=== PATIENT | female | born 1960 | race Caucasian/White ===

== ENCOUNTER 2019-08-29 12:26 | Emergency (ER) | payer BC, OTHER ==
[2019-08-29] MEDS ORDERED: FENTANYL CITR 100 MCG/2 ML ONE (13:04)
[2019-08-29] MEDS ORDERED: ONDANSETRON 4 MG/2 ML VIAL ONE (13:05)
[2019-08-29] MEDS ORDERED: KETOROLAC 30 MG/ML INJ ONE (13:05)
[2019-08-29] MEDS ORDERED: MORPHINE 4 MG/ML SYR ONE (13:43)
--- NOTE | 2019-08-29 13:54 | RAD REPORT ---
EXAM DESCRIPTION: CT - C Spine Wo Con - 08/29/2019 1:33 pm CLINICAL HISTORY: Pain;Radiculopathy Neck injury COMPARISON: No comparisons FINDINGS: The cervical vertebral body heights and disc spaces are maintained. No evidence of acute cervical spine fracture or subluxation. Prevertebral soft tissues are normal in thickness. IMPRESSION: Negative for acute cervical spine abnormality. All CT scans are performed using dose optimization technique as appropriate and may include automated exposure control or mA/KV adjustment according to patient size.
[2019-08-29] MEDS ORDERED: DIAZEPAM 10 MG/2 ML INJ SYRINGE ONE (15:04)
--- NOTE | 2019-08-29 15:09 | EDPHYS ---
Physician Documentation [facility] Name: Miryam Sharma Age: 59 yrs Sex: Female : 1960 Arrival Date: 08/29/2019 Time: 12:29 Bed 3 Private MD: ED Physician Tank Sharma HPI: 08/29 13:06 This 59 yrs old Female presents to ER via EMS with complaints of Neck pain. pm1 13:06 The patient or guardian complains of pain, that is acute. The symptoms are located pm1 diffusely. Onset: The symptoms/episode began/occurred just prior to arrival. Context: The problem was sustained at work. Associated signs and symptoms: Pertinent positives: pain radiating to right elbow. Modifying factors: The symptoms are alleviated by nothing. the symptoms are aggravated by movement. Severity of symptoms: in the emergency department the symptoms are unchanged. The patient has not experienced similar symptoms in the past. Patient reports blood pressure has been elevated since a change in the squilgeer of her generic medication. Historical: - Allergies: 12:35 No Known Allergies; aj1 - Home Meds: 12:35 Pristiq 50 mg Oral Tb24 1 tab once daily [Active]; losartan oral oral [Active]; aj1 - PMHx: 12:35 Anxiety; Depression; Hypertension; ADD/ADHD; GI Bleed; TIA; aj1 - PSHx: 12:35 ; Cholecystectomy; Gastric Bypass; parathyroid surgery; aj1 - Immunization history:: Flu vaccine is up to date. - Social history:: Smoking status: Patient/guardian denies using tobacco. - Ebola Screening: : Patient denies travel to an Ebola-affected area in the 21 days before illness onset. ROS: 13:06 Constitutional: Negative for fever, chills, and weight loss, Eyes: Negative for injury, pm1 pain, redness, and discharge, ENT: Negative for injury, pain, and discharge. 13:06 Cardiovascular: Negative for chest pain, palpitations, and edema, Respiratory: Negative for shortness of breath, cough, wheezing, and pleuritic chest pain, Abdomen/GI: Negative for abdominal pain, nausea, vomiting, diarrhea, and constipation, Back: Negative for injury and pain, MS/Extremity: Negative for injury and deformity, Skin: Negative for injury, rash, and discoloration, Neuro: Negative for headache, weakness, numbness, tingling, and seizure. 13:06 Neck: Positive for pain with movement, pain at rest. Exam: 13:06 Constitutional: This is a well developed, well nourished patient who is awake, alert, pm1 and in no acute distress. Head/Face: Normocephalic, atraumatic. Eyes: Pupils equal round and reactive to light, extra-ocular motions intact. Lids and lashes normal. Conjunctiva and sclera are non-icteric and not injected. Cornea within normal limits. Periorbital areas with no swelling, redness, or edema. ENT: Nares patent. No nasal discharge, no septal abnormalities noted. Tympanic membranes are normal and external auditory canals are clear. Oropharynx with no redness, swelling, or masses, exudates, or evidence of obstruction, uvula midline. Mucous membranes moist. 13:06 Chest/axilla: Normal chest wall appearance and motion. Nontender with no deformity. No lesions are appreciated. Cardiovascular: Regular rate and rhythm with a normal S1 and S2. No gallops, murmurs, or rubs. Normal PMI, no JVD. No pulse deficits. Respiratory: Lungs have equal breath sounds bilaterally, clear to auscultation and percussion. No rales, rhonchi or wheezes noted. No increased work of breathing, no retractions or nasal flaring. Abdomen/GI: Soft, non-tender, with normal bowel sounds. No distension or tympany. No guarding or rebound. No evidence of tenderness throughout. Back: No spinal tenderness. No costovertebral tenderness. Full range of motion. Skin: Warm, dry with normal turgor. Normal color with no rashes, no lesions, and no evidence of cellulitis. MS/ Extremity: Pulses equal, no cyanosis. Neurovascular intact. Full, normal range of motion. 13:06 Neck: External neck: tenderness, of the left mid cervical area, right mid cervical area and right trapezius, pain with axial compression left and right. 13:06 Neuro: Orientation: is normal, Motor: is normal, moves all fours, strength is normal, strength is 5/5 in all extremities, Sensation: is normal, no obvious gross deficits. Vital Signs: 12:32 BP 219 / 97; Pulse 74; Resp 18; Temp 97.6; Pulse Ox 100% on R/A; Weight 78.93 kg (R); aj1 Height 5 ft. 5 in. (165.10 cm) (R); Pain 10/10; 13:00 BP 201 / 92; Pulse 72; Resp 18; Pulse Ox 100% ; aj1 13:30 BP 197 / 98; Pulse 72; Resp 16; Pulse Ox 100% on R/A; aj1 14:00 BP 191 / 87; Pulse 65; Resp 17; Pulse Ox 100% on R/A; aj1 14:30 BP 191 / 98; Pulse 68; Resp 18; Pulse Ox 100% on R/A; aj1 15:00 BP 180 / 98; Pulse 70; Resp 18; Pulse Ox 97% on R/A; aj1 12:32 Body Mass Index 28.95 (78.93 kg, 165.10 cm) [facility] MDM: 12:38 Patient medically screened. pm1 15:06 Data reviewed: vital signs. Data interpreted: Pulse oximetry: on room air is 100 %. pm1 Interpretation: normal. 15:07 Counseling: I had a detailed discussion with the patient and/or guardian regarding: the pm1 historical points, exam findings, and any diagnostic results supporting the discharge/admit diagnosis, radiology results, the need for outpatient follow up, a family practitioner, a neurosurgeon, MRI, to return to the emergency department if symptoms worsen or persist or if there are any questions or concerns that arise at home. 08/29 13:23 Order name: CT C Spine; Complete Time: 14:06 pm1 08/29 12:56 Order name: IV Saline Lock; Complete Time: 13:03 pm1 08/29 13:40 Order name: EKG Electrocardiogram; Complete Time: 13:40 EDMS Administered Medications: 13:14 Drug: TORadol - Ketorolac 15 mg Route: IVP; Site: right antecubital; sg 14:00 Follow up: Response: No adverse reaction; RASS: Alert and Calm (0) [facility] 13:14 Drug: fentaNYL (PF) 50 mcg Route: IVP; Site: right antecubital; sg 14:00 Follow up: Response: No adverse reaction; RASS: Alert and Calm (0) [facility] 13:14 Drug: Zofran 4 mg Route: IVP; Site: right antecubital; sg 14:00 Follow up: Response: No adverse reaction [facility] 13:47 Drug: morphine 4 mg Route: IVP; Site: right antecubital; 14:18 Follow up: Response: No adverse reaction; RASS: Restless (+1) aj1 15:05 Drug: Valium 2 mg Route: IVP; Site: right antecubital; aj1 15:45 Follow up: Response: No adverse reaction; Pain is decreased; RASS: Alert and Calm (0) aj1 Disposition: 16:27 Co-signature as Attending Physician, Tank Sharma MD I agree with the assessment and [facility] plan of care. Disposition: 08/29/19 15:08 Discharged to Home. Impression: Radiculopathy, cervical region. - Condition is Stable. - Discharge Instructions: Cervical Radiculopathy. - Prescriptions for Tylenol- Codeine #3 300-30 mg Oral Tablet - take 2 tablets by ORAL route every 6 hours As needed; 20 tablet. Cyclobenzaprine 10 mg Oral Tablet - take 1 tablet by ORAL route every 8 hours As needed; 30 tablet. Diclofenac Sodium 75 mg Oral Tablet Sustained Release - take 1 tablet by ORAL route 2 times per day; 30 tablet. - Work release form, Medication Reconciliation Form, Thank You Letter, Antibiotic Education, Prescription Opioid Use form. - Follow up: Emergency Department; When: As needed; Reason: Worsening of condition. Follow up: Private Physician; When: 2 - 3 days; Reason: Recheck today's complaints, Continuance of care, Re-evaluation by your physician. - Problem is new. - Symptoms have improved. Signatures: Dispatcher [employer] EDMS Lizzie Mckeon RN RN aj1 Edin Barrientos RN RN sg Anderson, Corey, MD MD cha Marinas, Patrick, SHELF STOCKER SHELF STOCKER pm1 Corrections: (The following items were deleted from the chart) 15:47 15:08 08/29/2019 15:08 Discharged to Home. Impression: Radiculopathy, cervical region. aj1 Condition is Stable. Forms are Medication Reconciliation Form, Thank You Letter, Antibiotic Education, Prescription Opioid Use. Follow up: Emergency Department; When: As needed; Reason: Worsening of condition. Follow up: Private Physician; When: 2 - 3 days; Reason: Recheck today's complaints, Continuance of care, Re-evaluation by your physician. Problem is new. Symptoms have improved. pm1
--- NOTE | 2019-08-29 15:09 | ER ---
Nurse's Notes [facility] Name: Miryam Sharma Age: 59 yrs Sex: Female : 1960 Arrival Date: 08/29/2019 Time: 12:29 Bed 3 Private MD: Diagnosis: Radiculopathy, cervical region Presentation: 08/29 12:32 Acuity: KARLY 2 aj1 12:32 Presenting complaint: Patient states: She was at work when suddenly she started to have aj1 severe pain in the back of her neck that radiates down the right arm. Denies chest pain. Transition of care: patient was not received from another setting of care. Onset of symptoms was August 29, 2019. Risk Assessment: Do you want to hurt yourself or someone else? Patient reports no desire to harm self or others. Initial Sepsis Screen: Does the patient meet any 2 criteria? No. Patient's initial sepsis screen is negative. Does the patient have a suspected source of infection? No. Patient's initial sepsis screen is negative. Care prior to arrival: None. 12:32 Method Of Arrival: EMS: [facility] aj1 Triage Assessment: 12:35 General: Appears uncomfortable, Behavior is calm, cooperative, appropriate for age. aj1 Pain: Complains of pain in neck Pain radiates to right arm Pain currently is 10 out of 10 on a pain scale. EENT: No signs and/or symptoms were reported regarding the EENT system. Neuro: Level of Consciousness is awake, alert, obeys commands, Oriented to person, place, time, situation. Cardiovascular: Denies chest pain, Heart tones S1 S2 present Patient's skin is warm and dry. Rhythm is regular. Respiratory: Airway is patent Respiratory effort is even, unlabored, Respiratory pattern is regular, symmetrical, Breath sounds are clear bilaterally. GI: No signs and/or symptoms were reported involving the gastrointestinal system. : No signs and/or symptoms were reported regarding the genitourinary system. Derm: No signs and/or symptoms reported regarding the dermatologic system. Skin is pink, warm \T\ dry. normal. Musculoskeletal: No signs and/or symptoms reported regarding the musculoskeletal system. Circulation, motion, and sensation intact. Historical: - Allergies: 12:35 No Known Allergies; aj1 - Home Meds: 12:35 Pristiq 50 mg Oral Tb24 1 tab once daily [Active]; losartan oral oral [Active]; aj1 - PMHx: 12:35 Anxiety; Depression; Hypertension; ADD/ADHD; GI Bleed; TIA; aj1 - PSHx: 12:35 ; Cholecystectomy; Gastric Bypass; parathyroid surgery; aj1 - Immunization history:: Flu vaccine is up to date. - Social history:: Smoking status: Patient/guardian denies using tobacco. - Ebola Screening: : Patient denies travel to an Ebola-affected area in the 21 days before illness onset. Screenin:36 Abuse screen: Denies threats or abuse. Denies injuries from another. Nutritional aj1 screening: No deficits noted. Tuberculosis screening: No symptoms or risk factors identified. 15:46 Fall Risk None identified. aj1 Assessment: 12:36 Reassessment: see triage assessment. aj1 13:14 Reassessment: Patient appears in no apparent distress at this time. Patient and/or sg family updated on plan of care and expected duration. Pain level reassessed. Patient is alert, oriented x 3, equal unlabored respirations, skin warm/dry/pink. Neuro: Level of Consciousness is awake, alert, obeys commands, Oriented to person, place, time, situation. 14:05 Reassessment: Patient appears in no apparent distress at this time. No changes from aj1 previously documented assessment. Patient and/or family updated on plan of care and expected duration. Pain level reassessed. Patient is alert, oriented x 3, equal unlabored respirations, skin warm/dry/pink. 15:05 Reassessment: Patient appears in no apparent distress at this time. No changes from aj1 previously documented assessment. Patient and/or family updated on plan of care and expected duration. Pain level reassessed. Patient is alert, oriented x 3, equal unlabored respirations, skin warm/dry/pink. Vital Signs: 12:32 BP 219 / 97; Pulse 74; Resp 18; Temp 97.6; Pulse Ox 100% on R/A; Weight 78.93 kg (R); aj1 Height 5 ft. 5 in. (165.10 cm) (R); Pain 10/10; 13:00 BP 201 / 92; Pulse 72; Resp 18; Pulse Ox 100% ; aj1 13:30 BP 197 / 98; Pulse 72; Resp 16; Pulse Ox 100% on R/A; aj1 14:00 BP 191 / 87; Pulse 65; Resp 17; Pulse Ox 100% on R/A; aj1 14:30 BP 191 / 98; Pulse 68; Resp 18; Pulse Ox 100% on R/A; aj1 15:00 BP 180 / 98; Pulse 70; Resp 18; Pulse Ox 97% on R/A; aj1 12:32 Body Mass Index 28.95 (78.93 kg, 165.10 cm) aj1 ED Course: 12:29 Patient arrived in ED. ss 12:32 Lizzie Mckeon, RN is Primary Nurse. aj1 12:32 Triage completed. aj1 12:35 Arm band placed on. aj1 12:36 Patient has correct armband on for positive identification. Bed in low position. Call aj1 light in reach. Side rails up X 1. 12:36 No provider procedures requiring assistance completed. aj1 12:38 Rudi Brown NP is PHCP. pm1 12:38 Tank Sharma MD is Attending Physician. pm1 12:59 EKG done, by ambulatory technologist. reviewed by Rudi Brown NP. sm3 13:10 Inserted saline lock: 22 gauge in right antecubital area, using aseptic technique. sg Blood collected. 13:31 CT completed. Patient tolerated procedure well. Patient moved to CT via stretcher. Patient moved back from CT. 13:33 CT C Spine In Process Unspecified. EDMS 15:46 IV discontinued, intact, bleeding controlled, No redness/swelling at site. Pressure aj1 dressing applied. Administered Medications: 13:14 Drug: TORadol - Ketorolac 15 mg Route: IVP; Site: right antecubital; sg 14:00 Follow up: Response: No adverse reaction; RASS: Alert and Calm (0) aj1 13:14 Drug: fentaNYL (PF) 50 mcg Route: IVP; Site: right antecubital; sg 14:00 Follow up: Response: No adverse reaction; RASS: Alert and Calm (0) aj1 13:14 Drug: Zofran 4 mg Route: IVP; Site: right antecubital; sg 14:00 Follow up: Response: No adverse reaction aj1 13:47 Drug: morphine 4 mg Route: IVP; Site: right antecubital; sg 14:18 Follow up: Response: No adverse reaction; RASS: Restless (+1) [facility] 15:05 Drug: Valium 2 mg Route: IVP; Site: right antecubital; [facility] 15:45 Follow up: Response: No adverse reaction; Pain is decreased; RASS: Alert and Calm (0) [facility] Outcome: 15:08 Discharge ordered by . pm1 15:46 Discharged to home ambulatory. aj 15:46 Condition: good 15:46 Discharge instructions given to patient, family, Instructed on discharge instructions, follow up and referral plans. no drinking with medication, no driving heavy equipment, medication usage, Demonstrated understanding of instructions, follow-up care, medications, Prescriptions given X 3. 15:[address] [facility] Signatures: Dispatcher [employer] EDLizzie Simmons RN RN aj1 Edin Barrientos RN RN sg Smirch, Shelby, RN RN ss Warren, Shannon sw Marinas, Patrick, PETER NET APPLICATION ARCHITECT pm1 Nanda Cartwright 3
--- NOTE | 2019-08-29 15:43 | EKG ---
Test Date: 2019-08-29 Test Time: 12:39:21 Digital Strategist: LENORA MEASUREMENT RESULTS: Intervals: Rate: 72 AK: 190 QRSD: 86 QT: 422 QTc: 462 [place]: P: 72 AK: 190 QRS: 61 T: 59 INTERPRETIVE STATEMENTS: Normal sinus rhythm normal ECG Compared to ECG 05/06/2017 19:04:51 no significant change from previous ECG Electronically Signed On 08-29-19 15:42:49 CDT by Jhonatan Cunningham
[2019-08-29 16:04] VITALS: TEMP 97.6
[2019-08-29 16:10] VITALS: BP 180/98; O2SAT 97
== END 2019-08-29 15:47 | disposition home or self-care (01) ==
LOC: ER 12:26
DX: M54.12 Radiculopathy, cervical region (principal); I10 Essential (primary) hypertension; F41.8 Other specified anxiety disorders
CPT/HCPCS: 93005; 72125; 96375; 96374; 99285; J3360; J3010; J2405

== ENCOUNTER 2022-01-28 13:42 | Emergency (ER) | payer OTHER ==
--- OUTSIDE RECORDS SUMMARY | 2022-01-28 13:46 | XMS REPORT | Continuity of Care Document ---
:1960 Author Organization [facility] t Address [address] [place] [address] Care Team Providers Name Role Phone Radha MACE Attending Clinician Mariel MÁRQUEZ Attending Clinician Unavailable Joy MACE Attending Clinician Angy MACE Attending Clinician Zach HAMILTON Attending Clinician Unavailable Zach HAMILTON Admitting Clinician Unavailable Payers Payer Name Policy Type Policy Number Effective Date Expiration Date S ource Problems Condition Condition Condition Status Onset Resolution Last Treating Co mments Source Name Details Category Date Date Treatment Clinician Date S/P S/P Disease Active [facility] parathyroi parathyroi 3-25 Co llege dectomy dectomy 00:00: of 00 Medicin e Multiple Multiple Disease Active [facility] r thyroid thyroid 3-25 [place] nodules nodules 00:00: of 00 Medicin e Primary Primary Disease Active Overview: [facility] hyperparat hyperparat 2-20 [facility] hyroidism hyroidism 00:00: g of this o f (HCCode) (HCCode) 00 note is Medic in different e from the original. Left lower parathyro idectomy 12/[address] Deng Hamilton at [facility] logy:DIAG NOSIS PARATHYRO ID, LEFT LOWER, PARATHYRO IDECTOMY: - HYPERCELL ULAR PARATHYRO ID TISSUE - ADJACENT THYROID TISSUE WITH MILD HYPERLAST IC CHANGES Signing Pathologi st Direct Phone Line: Electroni maurice signed by Dashawn Garg MD on 01/20/2019 at 5:53 PM Elevated Elevated Disease Active [facility] parathyroi parathyroi 2-04 [employer] d hormone d hormone 00:00: of 00 Medicin e Allergies, Adverse Reactions, Alerts This patient has no known allergies or adverse reactions. Family History Family Member Diagnosis Comments Start Date Stop Date Source Natural father Heart Attack [facility] ollege [facility] Natural father Stroke [facility] lege [facility] Social History Social Habit Start Date Stop Date Quantity Comments Source History [facility] ge Alcohol Std Drinks of Med icine History [facility] Alcohol Binge of Medicine Alcohol intake 2021-05-28 2021-05-28 Current [facility] lege 00:00:00 00:00:00 non-drinker of of Medicin e alcohol (finding) History [facility] 2018-12-06 2018-12-06 1 [facility] ge Alcohol Frequency 00:00:00 00:00:00 of [facility] cine Tobacco use and 2018-12-06 2018-12-06 Never used [facility] Co llege exposure 00:00:00 00:00:00 of Medicine Sex Ass[birth year] F [facility] Co llege 00:00:00 00:00:00 of Medicine Smoking Status Start Date Stop Date Source Never smoker [facility] o f Medicine Medications Ordered Filled Start Stop Current Ordering Indication Dosage Frequency Signature Comments Components Source Medication Medication Date Date Medication? Clinician (SIG) Name Name Damon 2020- No 1471 Inject as Rafael min 1000 05-28 directed Colleg e MCG/ML KIT 14:28: 00:00 every 30 of 02 :00 days. Medicin e Multiple Yes 2472 125ug Take 125 [facility] Vitamins-Mi 05-28 mcg by Colleg e nerals 14:19: mouth of (VITAMIN D3 08 daily. Medici n COMPLETE e OR) Vitamin D, Yes 54930O Take [facility] Ergocal[facility] 7- 50,000 Colleg e rol, [id number] 14:19: Units by of units CAPS 08 mouth. Medicin e B Complex Yes 1{tbl} Take 1 Tab [facility] TABS 05-28 by mouth. [place] 14:19: of 08 Medicin e CALCIUM Yes Take by Rafael CARBONATE 7-27 mouth. College OR 14:19: of 08 Medicin e bisoprolol 0 Yes 5mg Take 5 mg [facility] (ZEBETA) 5 7-27 by mouth Colle ge MG tablet 14:19: daily. of 08 Medicin e hydrALAZINE 0 Yes 50mg Take 50 mg Rafael (APRESOLINE 7-27 by mouth 3 Co llege ) 50 MG 14:19: times of tablet 08 daily. Medicin e aripiprazol 0 Yes 5mg Take 5 mg [facility] e (ABILIFY) 7-27 by mouth Al[facility]so ege 5 MG tablet 14:19: daily. of 08 Medicin e bisoprolol Yes 5mg Take 5 mg [facility] (ZEBETA) 5 6-02 by mouth Colle ge MG tablet 14:52: daily. of 24 Medicin e hydrALAZINE Yes 50mg Take 50 mg Rafael (APRESOLINE 6-02 by mouth 3 Co llege ) 50 MG 14:52: times of tablet 24 daily. Medicin e aripiprazol Yes 5mg Take 5 mg [facility] e (ABILIFY) 6-02 by mouth Alfonso ege 5 MG tablet 14:52: daily. of 24 Medicin e Folic Acid Yes [facility] (FOLATE OR) 11-02 [place] 00:00: of 00 Medicin e Multiple 2018-11 Yes 2472 125ug Take 125 [facility] Vitamins-Mi 0-01 mcg by [facility] nerals 19:06: mouth of (VITAMIN D3 52 daily. Medici n COMPLETE e OR) Cyanocobala 2018-11 Yes 1471 Inject as Rafael min 1000 0-01 directed [place] MCG/ML KIT 19:06: every 30 of 52 days. Medicin e Vitamin D, 2018-11 Yes [id number] Take [facility] 0-01 50,000 [facility] rol, [id number] 19:06: Units by of units CAPS 52 mouth. Medicin e B Complex 2018-11 Yes 1{tbl} Take 1 Tab Rafael TABS 0-01 by mouth. College 19:06: of 52 Medicin e CALCIUM 2018-11 Yes Take by Rafael CARBONATE 0-01 mouth. College OR 19:06: of 52 Medicin e Multiple 2018-11 Yes 2472 125ug Take 125 [facility] Vitamins-Mi 0-01 mcg by Colleg e nerals 14:06: mouth of (VITAMIN D3 52 daily. Medici n COMPLETE e OR) Cyanocobala 2018-11 Yes 1471 Inject as [facility] min 1000 0-01 directed College MCG/ML KIT 14:06: every 30 of 52 days. Medicin e Vitamin D, 2018-11 Yes [id number] Take [facility] 0-01 50,000 Colleg e rol, [address] 14:06: Units by of units CAPS 52 mouth. Medicin e B Complex 2018-11 Yes 1{tbl} Take 1 Tab [facility] TABS 0-01 by mouth. College 14:06: of 52 Medicin e CALCIUM 2018-11 Yes Take by [facility] CARBONATE 0-01 mouth. College OR 14:06: of 52 Medicin e Multiple Yes 2472 125ug Take 125 [facility] Vitamins-Mi 9-26 mcg by Colleg e nerals 14:14: mouth of (VITAMIN D3 49 daily. Medici n COMPLETE e OR) Cyanocobala Yes 1471 Inject as Rafael min 1000 9-26 directed College MCG/ML KIT 14:14: every 30 of 49 days. Medicin e Vitamin D, Yes 51436S Take [facility] 9-26 50,000 Colleg [place] rol, [address] 14:14: Units by of units CAPS 49 mouth. Medicin e B Complex Yes 1{tbl} Take 1 Tab [facility] TABS 9-26 by mouth. College 14:14: of 49 Medicin e CALCIUM Yes Take by Rafael CARBONATE 9-26 mouth. College OR 14:14: of 49 Medicin e triamcinolo Yes APPLY 4 [facility] 9-11 [facility] acetonide 00:00: IN MOUTH of (KENALOG) 00 BID UTD Medicin 0.1 % paste e triamcinolo Yes APPLY 4 [facility] 9-11 [facility] acetonide 00:00: IN MOUTH of (KENALOG) 00 BID UTD Medicin 0.1 % paste e triamcinolo 2020- No APPLY 11/05 [facility] 9-11 07-27 [facility] acetonide 00:00: 00:00 IN MOUTH of (KENALOG) 00 :00 BID UTD Medicin 0.1 % paste e losartan Yes 1{tbl} Take 1 Tab [facility] (COZAAR) 1-18 by [facility] 100 MG 00:00: once. of tablet 00 Medicin e losartan 2019- Yes 1{tbl} Take 1 Tab [facility] (COZAAR) 1-18 by [facility] 100 MG 00:00: once. of tablet 00 Medicin e losartan 2018- Yes 1{tbl} Take 1 Tab [facility] (COZAAR) 1-18 by [facility] 100 MG 00:00: once. of tablet 00 Medicin e losartan 2018- Yes 1{tbl} Take 1 Tab [facility] (COZAAR) 1-18 by [facility] 100 MG 00:00: once. of tablet 00 Medicin e Desvenlafax 2019- Yes 1{tbl} Take 1 Tab Rafael ine 1-14 by [facility] Succinate 00:00: once. of 50 MG TB24 00 Medicin e Desvenlafax 2019-0 Yes 1{tbl} Take 1 Tab Rafael ine 1-14 by [facility] Succinate 00:00: once. of 50 MG TB24 00 Medicin e Desvenlafax 2019-0 Yes 1{tbl} Take 1 Tab [facility] ine 1-14 by [facility] Succinate 00:00: once. of 50 MG TB24 00 Medicin e Desvenlafax 2019- Yes 1{tbl} Take 1 Tab Rafael ine 1-14 by [facility] Succinate 00:00: once. of 50 MG TB24 00 Medicin e Immunizations Ordered Immunization Filled Immunization Date Status Commen ts Source Name Name Influenza Quad-PF 2018-07-22 Completed [facility] 00:00:00 of Medicine Vital Signs Vital Name Observation Time Observation Value Comments Source Body height 2021-05-28 160 cm [facility] 19:17:00 of Medicine Body weight 2021-05-28 90.719 kg [facility] 19:17:00 of Medicine BMI 2021-05-28 35.43 kg/m2 [facility] 19:17:00 of Medicine Body weight 2021-04-03 89.359 kg [facility] 19:47:00 of Medicine BMI 2021-04-03 34.90 kg/m2 [facility] 19:47:00 of Medicine Systolic blood 2021-04-03 176 mm[Hg] [facility] Colleg e pressure 19:47:00 of Medicine Diastolic blood 2021-04-03 83 mm[Hg] [facility] Colle ge pressure 19:47:00 of Medicine Heart rate 2021-04-03 55 /min SpO2--96% on [facility] 19:47:00 room air of Medicine Body temperature 2021-04-03 36.83 Mary [facility] Alfonso ege 19:47:00 of Medicine Respiratory rate 2021-04-03 16 /min [facility] Alfonso ege 19:47:00 of Medicine Body height 2021-04-03 160 cm [facility] 19:47:00 of Medicine Body height 2019-08-02 162.6 cm [facility] 19:03:00 of Medicine Body weight 2019-08-02 78.926 kg [facility] 19:03:00 of Medicine BMI 2019-08-02 29.87 kg/m2 [facility] 19:03:00 of Medicine Systolic blood 2019-08-02 150 mm[Hg] [facility] Colleg e pressure 19:03:00 of Medicine Diastolic blood 2019-08-02 88 mm[Hg] Rafael Colle ge pressure 19:03:00 of Medicine Heart rate 2019-08-02 81 /min [facility] 19:03:00 of Medicine Respiratory rate 2019-08-02 16 /min [facility] Alfonso ege 19:03:00 of Medicine Body height 2019-08-02 162.6 cm [facility] 19:03:00 of Medicine Body weight 2019-08-02 78.926 kg [facility] 19:03:00 of Medicine BMI 2019-08-02 29.87 kg/m2 [facility] 19:03:00 of Medicine Systolic blood 2019-08-02 150 mm[Hg] [facility] Colleg e pressure 19:03:00 of Medicine Diastolic blood 2019-08-02 88 mm[Hg] [facility] Colle ge pressure 19:03:00 of Medicine Heart rate 2019-08-02 81 /min [facility] 19:03:00 of Medicine Respiratory rate 2019-08-02 16 /min [facility] Alfonso ege 19:03:00 of Medicine Systolic blood 2019-07-28 164 mm[Hg] [facility] e pressure 14:13:00 of Medicine Diastolic blood 2019-07-28 97 mm[Hg] [facility] ge pressure 14:13:00 of Medicine Heart rate 2019-07-28 73 /min [facility] 14:13:00 of Medicine Body height 2019-07-28 163.8 cm [facility] 14:13:00 of Medicine Body weight 2019-07-28 79.561 kg [facility] 14:13:00 of Medicine BMI 2019-07-28 29.64 kg/m2 [facility] 14:13:00 of Medicine Body temperature 2019-01-31 36.67 [facility] ege 18:00:00 of Medicine Respiratory rate 2019-01-31 16 /min [facility] ege 18:00:00 of Medicine Procedures Procedure Date / Time Performed Performing Clinician Sour e CALCIUM 2021-04-03 20:45:00 [facility] Medicine CALCIUM IONIZED 2021-04-03 20:45:00 [facility] Medicine PTH INTACT 2021-04-03 20:45:00 [facility] Medicine PHOSPHORUS 2021-04-03 20:45:00 [facility] Medicine VITAMIN D 25 HYDROXY 2021-04-03 20:45:00 [facility] VITAMIN D 1,25 2021-04-03 20:45:00 [facility] Plan of Care Planned Activity Planned Date Details Comments Source Future Scheduled 2021-05-30 Screening for malignant [facility] Test 13:09:33 neoplasm of colon of Medicin e (procedure) [code = 815861022] Future Scheduled 2021-05-30 Screening for malignant [facility] Test 13:09:33 neoplasm of breast of Medici ne (procedure) [code = 462177806] Future Scheduled 2021-05-30 COVID-19 Vaccine (1) [facility] Test 13:09:33 [code = COVID-19 of Medicine Vaccine (1)] Future Scheduled 2021-05-30 TETANUS SHOT (ADULT) [facility] Test 13:09:33 [code = TETANUS SHOT of Medi cine (ADULT)] Future Scheduled 2021-05-30 BMI FOLLOW UP PLAN [employer] [facility] [employer] Test 13:09:33 [code = BMI FOLLOW UP of Med icine PLAN] Future Scheduled 2021-05-30 Hepatitis C screening [employer] Test 13:09:33 (procedure) [code = of Medic ine 282235201] Future Scheduled 2021-05-30 Human immunodeficiency [facility] [employer] Test 13:09:33 virus screening of Medicine (procedure) [code = 434893673] Future Scheduled 2021-05-30 Screening for malignant [facility] College Test 13:09:33 neoplasm of cervix of Medici ne (procedure) [code = 999971815] Future Scheduled 2021-05-30 ZOSTER VACCINE (1 of 2) [facility] College Test 13:09:33 [code = ZOSTER VACCINE of Me dicine (1 of 2)] Future Scheduled 2021-05-30 FLU VACCINE > 6 MONTHS [facility] [employer] Test 13:09:33 [code = FLU VACCINE > 6 of M edicine MONTHS] Future Scheduled 2021-05-28 ORT - XR HIP RIGHT 2V Ordered: [employer] [facility] [employer] Test 14:17:52 (CHARGE ONLY) [code = 05/28/2021 of Med icine 85105] Future Scheduled 2021-05-28 ORT - XR PELVIS AP Ordered: [facility] [facility] [employer] Test 14:17:52 (CHARGE ONLY) [code = 05/28/2021 of Med icine 96921] Future Scheduled 2021-04-29 Screening for malignant [facility] College Test 16:47:26 neoplasm of colon of Medicin e (procedure) [code = 018783007] Future Scheduled 2021-04-29 Screening for malignant [facility] College Test 16:47:26 neoplasm of breast of Medici ne (procedure) [code = 940954919] Future Scheduled 2021-04-29 COVID-19 Vaccine (1) [employer] [facility] Test 16:47:26 [code = COVID-19 of Medicine Vaccine (1)] Future Scheduled 2021-04-29 TETANUS SHOT (ADULT) [employer] [facility] Test 16:47:26 [code = TETANUS SHOT of Medi cine (ADULT)] Future Scheduled 2021-04-29 BMI FOLLOW UP PLAN [employer] [facility] [employer] Test 16:47:26 [code = BMI FOLLOW UP of Med icine PLAN] Future Scheduled 2021-04-29 Hepatitis C screening [employer] Test 16:47:26 (procedure) [code = of Medic ine 026695763] Future Scheduled 2021-04-29 Human immunodeficiency B [facility] Test 16:47:26 virus screening of Medicine (procedure) [code = 326217068] Future Scheduled 2021-04-29 Screening for malignant [facility] Test 16:47:26 neoplasm of cervix of Medici ne (procedure) [code = 732299548] Future Scheduled 2021-04-29 ZOSTER VACCINE (1 of 2) [facility] Test 16:47:26 [code = ZOSTER VACCINE of Me dicine (1 of 2)] Future Scheduled 2021-04-29 FLU VACCINE > 6 MONTHS B [facility] Test 16:47:26 [code = FLU VACCINE > 6 of M edicine MONTHS] Future Scheduled 2021-04-03 VITAMIN D,25 HYDROXY & Ordered: B [facility] Test 15:18:41 1,25 DIHYDROXY,LC/MS 04/03/2021 of Medi cine [code = NOCPT] Diagnostic Test 2020-02-01 ALBUMIN [code = 1751-7] Expected: [facility] Pending 00:00:00 02/01/2020, of Medicine Expires: 08/02/2020 Diagnostic Test 2020-02-01 CALCIUM [code = Expected: [facility] Co llege Pending 00:00:00 69131-3] 02/01/2020, of Medicine Expires: 08/02/2020 Diagnostic Test 2020-02-01 PTH INTACT [code = Expected: [facility] Pending 00:00:00 2731-8] 02/01/2020, of Medicine Expires: 08/02/2020 Diagnostic Test 2020-02-01 VITAMIN D 25 HYDROXY Expected: [facility] Pending 00:00:00 [code = 1989-3] 02/01/2020, of Medicine Expires: 08/02/2020 Future Scheduled COLON CANCER SCREENING: [facility] Test COLONOSCOPY [code = of Medic ine COLON CANCER SCREENING: COLONOSCOPY] Future Scheduled MAMMOGRAM ANNUAL [code B [facility] Test = MAMMOGRAM ANNUAL] of Medic ine Future Scheduled TETANUS SHOT (ADULT) [facility] Test [code = TETANUS SHOT of Medi cine (ADULT)] Future Scheduled BMI FOLLOW UP PLAN [facility] r [place] Test [code = BMI FOLLOW UP of Med icine PLAN] Future Scheduled HEPATITIS C SCREENING [facility] Test [code = HEPATITIS C of Medic ine SCREENING] Future Scheduled HIV SCREENING [code = [employer] Test HIV SCREENING] of Medicine Future Scheduled CERVICAL CANCER [facility] C ollege Test SCREENING 3 YEAR FOLLOW of M edicine UP [code = CERVICAL CANCER SCREENING 3 YEAR FOLLOW UP] Future Scheduled FLU VACCINE > 6 MONTHS [employer] Test [code = FLU VACCINE > 6 of M edicine MONTHS] Future Scheduled BASIC METABOLIC PANEL Ordered: [employer] Test [code = 49744-1] 08/02/2019 of Medicine Future Scheduled COLON CANCER SCREENING: [facility] Test COLONOSCOPY [code = of Medic ine COLON CANCER SCREENING: COLONOSCOPY] Future Scheduled MAMMOGRAM ANNUAL [code [facility] [employer] [employer] Test = MAMMOGRAM ANNUAL] of Medic ine Future Scheduled TETANUS SHOT (ADULT) [employer] Test [code = TETANUS SHOT of Medi cine (ADULT)] Future Scheduled BMI FOLLOW UP PLAN [employer] Test [code = BMI FOLLOW UP of Med icine PLAN] Future Scheduled HEPATITIS C SCREENING [employer] Test [code = HEPATITIS C of Medic ine SCREENING] Future Scheduled HIV SCREENING [code = [employer] Test HIV SCREENING] of Medicine Future Scheduled CERVICAL CANCER [facility] C ollege Test SCREENING 3 YEAR FOLLOW of M edicine UP [code = CERVICAL CANCER SCREENING 3 YEAR FOLLOW UP] Future Scheduled FLU VACCINE > 6 MONTHS [employer] Test [code = FLU VACCINE > 6 of M edicine MONTHS] Encounters Start End Encounter Admission Attending Care Care Encounter Source Date/Time Date/Time Type Type Clinicians Facility Department ID 2021-05-28 2021-05-28 Office RASHAAD Garcia [id number] [facility] 13:57:20 15:44:43 Visit Evangelistd AMBULATOR 350.1.13.21 College Y 0.2.7.2.686 [facility] [id number] Medi paul 600 e 2021-05-28 2021-05-28 Outpatient RASHAAD PAGAN [id number] [facility] 14:18:26 14:18:26 [facility] of Medicin e 2021-05-28 2021-05-28 Outpatient RASHAAD MÁRQUEZ [id number] [facility] 00:00:00 00:00:00 DOLORES Kimbrough e of Medicin e 2021-04-03 2021-04-03 Office KAUSHIK Hamilton [id number] [facility] 14:11:42 15:41:14 Visit Richy Senia 350.1.13.21 Co llege 0.2.7.2.686 of [id number] [facility] paul 510 e 2019-08-02 2019-08-02 Office Markie Travis BCM [id number] 12:58:15 13:28:15 Visit AMBULATOR 350.1.13.21 Y 0.2.7.2.686 [id number] 2019-08-02 2019-08-02 Office Markie Travis BCNany [id number] [facility] 12:58:15 13:28:15 Visit AMBULATOR 350.1.13.21 College Y 0.2.7.2.686 of [id number] [facility] 310 e Results Test Description Test Time Test Comments Results Result Comments Source VITAMIN D 1,25 DIHYDROXY 2021-04-05 20:54:25 Test Item Value Reference Range Interpretation Comme nts VITAMIN D 1,25-DIHYDROXY (test 109.0 PG/ML 20.0-82.0 H This assay is primarily code = 1649-3) indicated for evaluation of hypercalcemia and for assessing patie nts with renal failure. A nor mal result does not exclud e Vitamin D deficiency. To assess for Vitamin D d eficiency, consider 25-Hyd zena Vitamin D assay. Unless Otherwise Indic ated, All Testing Perform ed At: [facility], [address] [place], [place] [address] 4 Laboratory Dire ctor: Dc Alatorre M.D. CLIA Number [id number] Cap Accreditation [place]. [id number] Lab Interpretation (test code = Abnormal 40498-9) [facility] [id number] 17:50:11 Test Item Value Reference Range Interpretation Comments CALCIUM IONIZED (test See_Comment Unless Otherwise code = 62601-9) Indicated, A ll Testing Performed At: [facility], [address] [place] [address] Laboratory Dir keith: Lucy Arias CLIA Number [id number] [place] Accreditation [place] o. [id number] [Automated mess age] The system which ge nerated this result transmit naye reference range : 4.70 - 5.90 MG/DL. The reference range was not u sed to interpret this result as normal/abnormal . [facility] 25 [id number] 13:21:50 Test Item Value Reference Range Interpretation Comments VITAMIN D 25-HYDROXY SEE BELOW NG/ML NOT E: 25-HYDROXYVITAMIN D (test code = 1989-) ASSAY I NCLUDES 25-HYDROXYVITAM IN D2 AND D3. METHOD OLOGY IS CHEMILUMINESCEN T IMMUNOASSAY. $$$$$ INTERPRET JANICE RANGES $$$$$PEDIATRIC (<17 YEARS) . . . . . . . . . . . NG/ML 20-100ADUL T: INSUFFICIENT . . . . . . . . . . . . . . N G/ML <20 SUBOPTI MAL . . . . . . . . . . . . . . . NG/ML 20-29 O PTIMAL . . . . . . . . . . . . . . . . . NG/ML 3 0-100 Unless Otherwi se Indicated, All Testing Per formed At: [facility] thology [facility], [address] [place], [place] [id number] 4 Laboratory Dire ctor: Dc Alatorre M.D. CLIA Number [id number] Cap Accreditation [place] o. [id number] [facility] [id number] 12:29:11 Test Item Value Reference Range Interpretation Comments PHOSPHORUS (test code = See_Comment Unless Otherwise 2777-1) Indicated, All Testing Performed At: [facility], [address] [place] [address] Laboratory D irector: Dc riggs M.D. CLIA Number [id number] Cap Accreditation [place] o. [id number] [Auto mated message] The sy stem which generated this result transmitted ref erence range: 2.5 - 4. 5 MG/DL. The reference r sol was not used to int erpret this result as normal/abnormal . [facility]2021-06-03 12:17:51 Test Item Value Reference Range Interpretation Comments CALCIUM (test code = See_Comment Unless Otherwise 98610-9) Indicated, All Testing Performed At: [facility], [address] [place] [address] Laboratory Dir keith: Lucy Arias CLIA Number [id number] Cap Accreditation N o. [Automated mess age] The system which ge nerated this result transmit naye reference range : 8.5 - 10.5 MG/DL. The refe rence range was not used to interpret this result as normal/abnormal . [facility] [id number] 11:52:10 Test Item Value Reference Range Interpretation Comments PARATHYROID HORMONE 93 PG/ML 15-65 H Unless INTACT (test code = Otherdarin graves Indicated, 2731-8) All Testing Per formed At: [facility], [address] [place] [address] Laboratory Dire ctor: Dc riggs M.D. CLIA Num ej [id number] Cap Accreditation N o. Lab Interpretation Abnormal (test code = 40347-4) [facility] CenterTISSUE [id number] 17:53:00Surgical Pathology Report Case: [id number] Authorizing Provider: Richy Hamilton MD Collected: 01/18/2019 0850 Ordering Location: [facility] Received: 01/18/2019 0940 SERVICES Pathologist: Dashawn Garg MD Specimen: Pa rathyroid, Left Lower Parathyroid PARATHYROID, LEFTLOWER, PARATHYROIDECTOMY: - HYPERCELLULAR PARATHYROID TISSUE - ADJACENT THYROID TISSUE WITH MILDHYPERLASTIC CHANGES Signing Pathologist Direct Phone Line: [phone] signed byDashawn Garg MD on 01/20/2019 at 5:53 [id number] hyperparathyroidismA. Left lower parathyroid The case is received in one part labeled with the patient's name (Miryam Sharma) and accession number ([id number]), which corresponds to accompanying requisition slip labeled with the same name and accession number.Received fresh labeled with the patient's name and information and "parathyroid" is a 0.438 gm, 1.2 x 0.6 x 0.5 cm, red-brown, fleshy, nodular specimen. The specimen is bisected to reveal a farrar-brown homogeneous cut surface. The specimen is submitted entirely in cassette A1. SB/ewPerformed.PTH, [id number] 11:00:00 Test Item Value Reference Range Interpretation Comments PARATHYROID HORMONE INTACT 38.4 pg/mL 8.5-72.5 (BEAKER) (test code = 577) [id number] 10:47:00 Test Item Value Reference Range Interpretation Comments CALCIUM (BEAKER) (test code = 697) 9.3 mg/dL 8.4-10.2 POCT-GLUCOSE [id number] 10:19:00 Test Item Value Reference Range Interpretation Comments POC-GLUCOSE METER 92 mg/dL 70-110 TESTED AT [facility] 6720 (BEAKER) (test code = [facility] [address] 1538) PTH, [id number] 09:18:00 Test Item Value Reference Range Interpretation Comments PARATHYROID HORMONE INTACT 53.7 pg/mL 8.5-72.5 (BEAKER) (test code = 577) post 3PTH, [id number] 09:14:00 Test Item Value Reference Range Interpretation Comments PARATHYROID HORMONE INTACT 61.6 pg/mL 8.5-72.5 (BEAKER) (test code = 577) Post 2PTH, [id number] 09:10:00 Test Item Value Reference Range Interpretation Comments PARATHYROID HORMONE INTACT 73.1 pg/mL 8.5-72.5 H (BEAKER) (test code = 577) Post-#1PTH, [id number] 09:09:00 Test Item Value Reference Range Interpretation Comments PARATHYROID HORMONE INTACT 114.6 pg/mL 8.5-72.5 H (BEAKER) (test code = 577) Pre #2PTH, [id number] 08:37:00 Test Item Value Reference Range Interpretation Comments PARATHYROID HORMONE INTACT 160.2 pg/mL 8.5-72.5 H (BEAKER) (test code = 577) POCT-GLUCOSE [id number] 06:22:00 Test Item Value Reference Range Interpretation Comments POC-GLUCOSE METER 109 mg/dL 70-110 TESTED AT [facility] 6720 (BEAKER) (test code = [facility] 1538) [address] [id number] 11:01:00 Test Item Value Reference Range Interpretation Comments SODIUM (BEAKER) (test code = 381) 140 meq/L 136-145 POTASSIUM (BEAKER) (test code = 4.4 meq/L 3.5-5.1 379) CHLORIDE (BEAKER) (test code = 382) 106 meq/L 98-107 CO2 (BEAKER) (test code = 355) 28 meq/L 22-29 [id number] 11:01:00 Test Item Value Reference Range Interpretation Comments GLUCOSE RANDOM (BEAKER) (test code = 67 mg/dL 70-105 L 652) BUN AND [id number] 11:01:00 Test Item Value Reference Range Interpretation Comments BLOOD UREA NITROGEN 14 mg/dL 7-21 (BEAKER) (test code = 354) CREATININE (BEAKER) 0.70 mg/dL 0.57-1.25 (test code = 358) EGFR (BEAKER) (test 87 mL/min/1.73 ESTIMA NAYE GFR IS code = 1092) sq m NOT ACCURATE CREATININE CLEARANCE IN PREDICTING GLOMERULAR FILTRATION RATE . ESTIMATED GFR I S NOT APPLICABLE FOR DIALYSIS PATIEN TS. [id number] 10:15:00 Test Item Value Reference Range Interpretation Comments HEMOGLOBIN (BEAKER) (test code = 13.5 GM/DL 11.2-15.7 410) CT, SOFT TISSUE NECK, WITHOUT / WITH IV [id number] 13:21:00FINAL REPORT EXAMINATION: CT of the neck with contrast HISTORY: Possible parathyroid adenomaCOMPARISON: None TECHNIQUE: Multidetector helical axial images were obtained from the noman to the angle of the mandible before and during intravenous infusion of iodinated contrast material. Images were reconstructed using soft tissue and bone algorithms and were viewed in multi planar format. Intravenous contrast: 100 cc of Omnipaque. Dose modulation, iterative reconstruction, and/or weight based adjustment of the mA/kV was utilized to reduce the radiation dose to as low as reasonably achievable. FINDINGS: Mass: Approximately 0.7 x 0.6 (CC AP) hyper enhancing ( not re liable HU due to beam hardening artifact secondary to bolus of contrast) nodule located 2.2 cm fromthe skin inferior to the left thyroid lobe and posterior to the sternoclavicular notch; the nodule is best seen on coronal plane image # 35 and axial plane image # 32 (please see saved huerta images with arrows). Lymph nodes: No lymphadenopathy. Sinuses: Imaged portions unremarkable. Oralcavity: Unremarkable. Salivary glands: Submandibular glands unremarkable. Partially visualized parotid glands are unremarkable. Pharynx: Unremarkable tresa and hypopharynx Larynx: Unremarkable. Thyroid gland: Unremarkable. Upper esophagus: Unremarkable. Blood vessels: Unremarkable. Bones: Unremarkable. Incidental findings: None IMPRESSION: 1.Possible parathyroid adenoma inferior to the left thyroid lobule and posterior to the sternoclavicular notchas described above. 2.The remaining of the studies are unremarkable Signed: Kayode Andrea MDReport Verified Date/Time: 12/20/2018 13:21:13 US, [id number] 13:18:00Reason for Exam:->E21.0FINAL REPORT EXAM: Thyroid UltrasoundINDICATION: Hyperparathyroidism E21.0 COMPARISON: None TECHNIQUE: Transverse and sagittal images were obtained of the thyroid gland. FINDINGS: Thyroid gland:Size: Right lobe: 4.7 x 2.1 x 1.6 cm, Normal in sizeLeft lobe: 3.9 x 1.7 x 1.2 cm, Normal in size Isthmus: 0.3 cm, Normal in sizeAppearance: Homogeneous echotexture without increased vascularityMasses/Nodules: Left thyroid superior pole 1.3 cm solid isoechoic nodule with ill-defined borders, wider than tall, and no calcification. TR3. Left thyroid inferior pole 0.7 cm solid hypoechoic nodule with well-defined borders, wider than tall, and no calcification. TR4. Parathyroid:No focal parathyroid masses. IMPRESSION: Left thyroid nodules. No follow-up or FNA. No parathyroid adenoma Signed: Derick Zelaya MDReport Verified Date/Time: 12/20/2018 13:18:13 POCT-CREATININE 2018-12-20 10:54:00 Test Item Value Reference Range Interpretation Comments POC-CREATININE 0.7 mg/dL 0.6-1.3 TESTED AT [facility] 7200 ([facility]) (test [facility] G A code = 1859) [facility] 7703 0 POC-EGFR 87 mL/min/1.73M2 ([facility]) (test code = 1860)
--- NOTE | 2022-01-28 14:59 | RAD REPORT ---
EXAM DESCRIPTION: RAD - Forearm Left - 01/28/2022 2:49 pm CLINICAL HISTORY: PAIN COMPARISON: No comparisons FINDINGS: Diffuse osteopenia. Cortical irregularity is seen in the region of the radial neck. Subtle fracture could be present in this location in the patient has pain in the elbow region. Otherwise, n o fracture is seen.
--- NOTE | 2022-01-28 16:21 | ER ---
Nurse's Notes [facility] Name: Miryam Sharma Age: 61 yrs Sex: Female : 1960 Arrival Date: 01/28/2022 Time: 13:46 Bed 27 Private MD: Diagnosis: Radial head fracture;fall;Asymptomatic Hypertension Presentation: 01/28 13:52 Chief complaint: EMS states: toned out to [facility] for pt tripping on rug and ld1 falling on left arm. Pt c/o right arm pain. Denies LOC. Coronavirus screen: At this time, the client does not indicate any symptoms associated with coronavirus-19. Ebola Screen: No symptoms or risks identified at this time. Initial Sepsis Screen: Does the patient meet any 2 criteria? No. Patient's initial sepsis screen is negative. Does the patient have a suspected source of infection? No. Patient's initial sepsis screen is negative. Risk Assessment: Do you want to hurt yourself or someone else? Patient reports no desire to harm self or others. Onset of symptoms was January 28, 2022. 13:52 Method Of Arrival: EMS: [facility] ld1 13:52 Acuity: KARLY 4 ld1 Triage Assessment: 13:53 General: Appears in no apparent distress. comfortable, Behavior is calm, cooperative, ld1 appropriate for age. Pain: Complains of pain in left arm Pain does not radiate. Pain currently is 3 out of 10 on a pain scale. EENT: No signs and/or symptoms were reported regarding the EENT system. Neuro: Level of Consciousness is awake, alert, obeys commands, Oriented to person, place, time, situation. Cardiovascular: Capillary refill < 3 seconds Patient's skin is warm and dry. Rhythm is regular. Respiratory: Airway is patent Respiratory effort is even, unlabored. GI: Abdomen is round non-distended. : No signs and/or symptoms were reported regarding the genitourinary system. Derm: No signs and/or symptoms reported regarding the dermatologic system. Musculoskeletal: No signs and/or symptoms reported regarding the musculoskeletal system. Historical: - Home Meds: 13:53 losartan Oral [Active]; Pristiq 50 mg Oral Tb24 1 tab once daily [Active]; metoprolol ld1 tartrate 25 mg Oral tab 1 tab once daily [Active]; - PMHx: 13:53 ADD/ADHD; Anxiety; Depression; GI Bleed; Hypertension; TIA; ld1 - PSHx: 13:53 None; ld1 - Immunization history:: Adult Immunizations up to date, Client reports receiving the 2nd dose of the Covid vaccine. - Social history:: Smoking status: Patient denies any tobacco usage or history of. Patient/guardian denies using alcohol. Screenin:55 Abuse screen: Denies threats or abuse. Denies injuries from another. Nutritional ld1 screening: No deficits noted. Tuberculosis screening: No symptoms or risk factors identified. Fall Risk None identified. Assessment: 13:55 Reassessment: see triage assessment. ld1 14:33 Reassessment: Patient appears in no apparent distress at this time. Patient and/or ld1 family updated on plan of care and expected duration. Pain level reassessed. Patient is alert, oriented x 3, equal unlabored respirations, skin warm/dry/pink. 16:16 Reassessment: Dr. Silveira at bedside discussing results and plan of care with patient and ss family. Vital Signs: 13:52 BP 174 / 111; Pulse 57; Resp 18; Temp 98.7(O); Pulse Ox 100% on R/A; Weight 92.99 kg; ld1 Height 5 ft. 5 in. (165.10 cm); Pain 3/10; 14:33 BP 188 / 98; Pulse 55; Resp 18; Pulse Ox 100% ; ld1 16:15 BP 199 / 96; Pulse 54; Resp 17; Pulse Ox 100% on R/A; mh5 16:25 BP 199 / 96; Pulse 60; Resp 18; Pulse Ox 100% on R/A; ld1 13:52 Body Mass Index 34.11 (92.99 kg, 165.10 cm) ld1 ED Course: 13:46 Patient arrived in ED. ld1 13:46 Brian Silveira DO is Attending Physician. ms3 13:47 Verena Larsen, STEPHANIA is Primary Nurse. ld1 13:53 Triage completed. ld1 13:53 Arm band placed on right wrist. ld1 13:55 Patient has correct armband on for positive identification. Placed in gown. Bed in low ld1 position. Call light in reach. Side rails up X2. Pulse ox on. NIBP on. post exchange manager on. Door closed. Noise minimized. Warm blanket given. 13:55 No provider procedures requiring assistance completed. ld1 14:51 Forearm Left XRAY In Process Unspecified. EDMS 16:19 Edin Lucero MD is Referral Physician. ms3 16:37 Orthoglass splint: posterior long arm splint applied to the left arm. Sling applied to mh5 left arm. 16:44 Patient did not have IV access during this emergency room visit. ld1 Administered Medications: No medications were administered Outcome: 16:20 Discharge ordered by . ms3 16:44 Discharged to home ambulatory, with family. ld1 16:44 Condition: stable 16:44 Discharge instructions given to patient, family, Instructed on discharge instructions, follow up and referral plans. Demonstrated understanding of instructions, follow-up care. 16:44 Patient left the ED. ld1 Signatures: Dispatcher [employer] EDMS Imani Golden, Belle Mathias RN 5 Brian Silveira, DO ms3 Verena Larsen, STEPHANIA RN ld1
--- NOTE | 2022-01-28 16:21 | EDPHYS ---
Physician Documentation [facility] Name: Miryam Sharma Age: 61 yrs Sex: Female : 1960 Arrival Date: 01/28/2022 Time: 13:46 Bed 27 Private MD: ED Physician Brian Silveira HPI: 01/28 13:47 This 61 yrs old Female presents to ER via EMS with complaints of Arm Pain. ms3 13:47 The patient or guardian complains of pain. The complaints affect the left forearm. ms3 Context: The problem was sustained at work. Onset: The symptoms/episode began/occurred just prior to arrival. Modifying factors: The symptoms are alleviated by nothing. the symptoms are aggravated by nothing. Associated signs and symptoms: The patient has no apparent associated signs or symptoms. Severity of symptoms: At their worst the symptoms were moderate, in the emergency department the symptoms are unchanged. 61 yo female presents via [facility] s/p tripping over carpet and falling. Patient states her discomfort is a 3/10 and aching. Patient states her arm pain is worse with supination. Patient denies alleviating factors.. Historical: - Home Meds: 13:53 losartan Oral [Active]; Pristiq 50 mg Oral Tb24 1 tab once daily [Active]; metoprolol ld1 tartrate 25 mg Oral tab 1 tab once daily [Active]; - PMHx: 13:53 ADD/ADHD; Anxiety; Depression; GI Bleed; Hypertension; TIA; ld1 - PSHx: 13:53 None; ld1 - Immunization history:: Adult Immunizations up to date, Client reports receiving the 2nd dose of the Covid vaccine. - Social history:: Smoking status: Patient denies any tobacco usage or history of. Patient/guardian denies using alcohol. ROS: 13:47 Constitutional: Negative for fever, and chills. ENT: Negative for injury, pain, and ms3 discharge, Neck: Negative for injury, pain, and swelling, Cardiovascular: Negative for chest pain, and palpitations. Respiratory: Negative for shortness of breath, cough, wheezing, and pleuritic chest pain, Abdomen/GI: Negative for abdominal pain, nausea, vomiting, diarrhea, and constipation, Back: Negative for injury and pain. 13:47 MS/extremity: Positive for pain. 13:47 All other systems are negative. Exam: 23:54 Constitutional: This is a well developed, well nourished patient who is awake, alert, ms3 and in no acute distress. Head/Face: Normocephalic, atraumatic. Neck: Trachea midline, no cervical lymphadenopathy. Supple, full range of motion without nuchal rigidity, or vertebral point tenderness. No Meningismus. Chest/axilla: Normal chest wall appearance and motion. Nontender with no deformity. Cardiovascular: Regular rate and rhythm with a normal S1 and S2. No gallops, murmurs, or rubs. Normal PMI, no JVD. No pulse deficits. Respiratory: Lungs have equal breath sounds bilaterally, clear to auscultation and percussion. No rales, rhonchi or wheezes noted. No increased work of breathing, no retractions or nasal flaring. Abdomen/GI: Soft, non-tender, with normal bowel sounds. No distension or tympany. No guarding or rebound. No evidence of tenderness throughout. 23:54 Skin: Warm, dry with normal turgor. Normal color with no rashes, no lesions, and no evidence of cellulitis. Psych: Awake, alert, with orientation to person, place and time. Behavior, mood, and affect are within normal limits. 23:54 Musculoskeletal/extremity: Extremities: noted in the left elbow: pain, tenderness. Vital Signs: 13:52 BP 174 / 111; Pulse 57; Resp 18; Temp 98.7(O); Pulse Ox 100% on R/A; Weight 92.99 kg; ld1 Height 5 ft. 5 in. (165.10 cm); Pain 3/10; 14:33 BP 188 / 98; Pulse 55; Resp 18; Pulse Ox 100% ; ld1 16:15 BP 199 / 96; Pulse 54; Resp 17; Pulse Ox 100% on R/A; mh5 16:25 BP 199 / 96; Pulse 60; Resp 18; Pulse Ox 100% on R/A; ld1 13:52 Body Mass Index 34.11 (92.99 kg, 165.10 cm) ld1 MDM: 13:47 Patient medically screened. ms3 16:20 Differential diagnosis: closed fracture, tendonitis, contusion. ms3 16:20 Data reviewed: vital signs, nurses notes, radiologic studies. Counseling: I had a ms3 detailed discussion with the patient and/or guardian regarding: the historical points, exam findings, and any diagnostic results supporting the discharge/admit diagnosis, the presence of at least one elevated blood pressure reading (>120/80) during this emergency department visit, radiology results, the need for outpatient follow up, to return to the emergency department if symptoms worsen or persist or if there are any questions or concerns that arise at home. ED course: Discussed x-ray findings with patient and her . Patient to follow up with Dr Awad as discussed. Patent and her understand/ agree with plan. Return precautions discussed to include worsening symptoms, or any other concerns. On re-evaluation patient left hand remains n/v intact, splint in place.. 01/28 13:52 Order name: Forearm Left XRAY; Complete Time: 16:13 ms3 Administered Medications: No medications were administered Disposition Summary: 01/28/22 16:20 Discharge Ordered Location: Home ms3 Problem: new ms3 Symptoms: are unchanged ms3 Condition: Stable ms3 Diagnosis - Radial head fracture ms3 - fall ms3 - Asymptomatic Hypertension ms3 Followup: ms3 - With: Edin Lucero MD - When: 2 - 3 days - Reason: Recheck today's complaints Discharge Instructions: - Discharge Summary Sheet ms3 - Hypertension, Adult ms3 - Radial Head Elbow Fracture Rehab-[facility] ms3 Forms: - Medication Reconciliation Form ms3 - Thank You Letter ms3 - Antibiotic Education ms3 - Prescription Opioid Use ms3 Signatures: Dispatcher [employer] EDMS Brian Silveira DO DO ms3 Verena Larsen RN RN ld1 Corrections: (The following items were deleted from the chart) 23:54 23:51 Differential diagnosis: closed fracture, tendonitis, contusion ms3 ms3
[2022-01-28 17:35] VITALS: TEMP 98.7; O2SAT 100
[2022-01-28 17:38] VITALS: BP 199/96
== END 2022-01-28 16:44 | disposition home or self-care (01) ==
LOC: ER 13:42
PROC: 2W39X1Z Immobilization of Left Upper Extremity using Splint (ICD-10-PCS; principal; 2022-01-28)
DX: S52.122A Displaced fracture of head of left radius, initial encounter for closed fracture (principal); W01.0XXA Fall on same level from slipping, tripping and stumbling without subsequent striking against object, initial encounter; Y92.89 Other specified places as the place of occurrence of the external cause; Y99.8 Other external cause status; I10 Essential (primary) hypertension; F41.8 Other specified anxiety disorders
CPT/HCPCS: 99284

== ENCOUNTER 2022-03-17 21:14 | Observation (INO) | payer OTHER ==
--- OUTSIDE RECORDS SUMMARY | 2022-03-17 21:17 | XMS REPORT | Continuity of Care Document ---
:1960 Author Organization [facility] t Address [address] [place] [address] Care Team Providers Name Role Phone Unknown Primary Care Physician Unavailable CHRYSTAL Attending Clinician Unavailable MARIO Attending Clinician Unavailable Mulugeta FERNANDEZ Attending Clinician Unavailable Heraclio Attending Clinician Unavailable Radha MACE Attending Clinician Mariel MÁRQUEZ Attending Clinician Unavailable Joy MACE Attending Clinician Angy MACE Attending Clinician Zach HAMILTON Attending Clinician Unavailable Heraclio Admitting Clinician Unavailable Zach HAMILTON Admitting Clinician Unavailable Payers Payer Name Policy Type Policy Number Effective Date Expiration Date Mariel CARRINGTONI LANDRY [id number] 2022 00:00:00 Problems Condition Condition Condition Status Onset Resolution Last Treating Co mments Source Name Details Category Date Date Treatment Clinician Date Closed Closed Disease Active [facility] displaced displaced 02-06 [facility] fracture fracture 00:00: of head of of head of 00 left left radius radius Left elbow Left elbow Disease Active [facility] pain pain [facility] 00:00: 00 S/P S/P Disease Active [facility] parathyroi parathyroi 3-25 Co llege dectomy dectomy 00:00: of 00 Medicin e Multiple Multiple Disease Active [facility] thyroid thyroid 3-25 [facility] nodules nodules 00:00: of 00 Medicin e Primary Primary Disease Active Overview: [facility] hyperparat hyperparat 2-20 [facility] hyroidism hyroidism 00:00: g of this o f (HCCode) (HCCode) 00 note is Medic in different e from the original. Left lower parathyro idectomy 12/[address] Deng Hamilton at [facility] logy:KAMILA CARR PARATHYRO ID, LEFT LOWER, PARATHYRO IDECTOMY: - HYPERCELL ULAR PARATHYRO ID TISSUE - ADJACENT THYROID TISSUE WITH MILD HYPERLAST IC CHANGES Signing Pathologi st Direct Phone Line: [phone] Electroni maurice signed by Dashawn Garg MD on 01/20/2019 at 5:53 PM Elevated Elevated Disease Active [facility] parathyroi parathyroi 2-04 Co llege d hormone d hormone 00:00: of 00 Medicin e Allergies, Adverse Reactions, Alerts This patient has no known allergies or adverse reactions. Family History Family Member Diagnosis Comments Start Date Stop Date Source Natural father Heart Attack [facility] Natural father Stroke [facility] Social [facility] Social Habit Start Date Stop Date Quantity Comments Source History [facility] Alcohol Std Drinks of Med icine History [facility] Alcohol Binge of Medicine Exposure to Not sure [facility] SARS-CoV-2 (event) Tobacco use and 2022-02-06 2022-02-06 Smokeless tobacco [facility] exposure 00:00:00 00:00:00 non-user Alcohol intake 2022-02-06 2022-02-06 [facility]er [facility] 00:00:00 00:00:00 of alcohol (finding) History [facility] 2018-12-06 2018-12-06 [facility] Alcohol Frequency 00:00:00 00:00:00 of Medi cine Sex Assigned At [birth year] [facility] 00:00:00 00:00:00 Smoking Status Start Date Stop Date Source Tobacco smoking consumption unknown [facility] Never smoked tobacco [facility] Medications Ordered Filled Start Stop Current Ordering Indication Dosage Frequency Signature Comments Components Source Medication Medication Date Date Medication? Clinician (SIG) Name Name No known No No known [facility] medications - medication He alth 12:45: s 20 No known No No known [facility] medications - medication He alth 12:45: s 20 No known No No known [facility] medications - medication He alth 12:45: s 20 Cyanocobala 2020- No 1471 Inject as Rafael min 1000 05-28 directed Colleg e MCG/ML KIT 14:28: 00:00 every 30 of 02 :00 days. Medicin e Multiple Yes 2472 125ug Take 125 [facility] Vitamins-Mi 05-28 mcg by Colleg e nerals 14:19: mouth of (VITAMIN D3 08 daily. Medici n COMPLETE e OR) Vitamin D, Yes [id number] Take [facility] Ergocalcife 05-28 50,000 Colleg [place], [address] 14:19: Units by of units CAPS 08 mouth. Medicin e B Complex Yes 1{tbl} Take 1 Tab [facility] TABS 05-28 by mouth. College 14:19: of 08 Medicin e CALCIUM Yes Take by [facility] CARBONATE 05-28 mouth. College OR 14:19: of 08 Medicin e bisoprolol Yes 5mg Take 5 mg [facility] (ZEBETA) 5 05-28 by mouth Colle ge MG tablet 14:19: daily. of 08 Medicin e hydrALAZINE Yes 50mg Take 50 mg [facility] (APRESOLINE 05-28 by mouth 3 Co llege ) 50 MG 14:19: times of tablet 08 daily. Medicin e aripiprazol Yes 5mg Take 5 mg [facility] (ABILIFY) 7- by mouth [facility] ege 5 MG tablet 14:19: daily. of 08 Medicin e bisoprolol Yes 5mg Take 5 mg [facility] (ZEBETA) 5 6-02 by mouth Colle ge MG tablet 14:52: daily. of 24 Medicin e hydrALAZINE Yes 50mg Take 50 mg [facility] (APRESOLINE 6-02 by mouth 3 Co llege ) 50 MG 14:52: times of tablet 24 daily. Medicin e aripiprazol Yes 5mg Take 5 mg [facility] e (ABILIFY) 6-02 by mouth [facility] e[facility] 5 MG tablet 14:52: daily. of 24 Medicin e Folic Acid Yes [facility] (FOLATE OR) 11-02 College 00:00: of 00 Medicin e Multiple 2018-11 Yes 2472 125ug Take 125 [facility] Vitamins-Mi 0-01 mcg by Colleg e nerals 19:06: mouth of (VITAMIN D3 52 daily. Medici n COMPLETE e OR) Cyanocobala 2018-11 Yes 1471 Inject as [facility] min 1000 0-01 directed College MCG/ML KIT 19:06: every 30 of 52 days. Medicin e Vitamin D, 2018-11 Yes 11500S Take [facility] 0-01 50,000 [facility] [place], [address] 19:06: Units by of units CAPS 52 mouth. Medicin e B Complex 2018-11 Yes 1{tbl} Take 1 Tab [facility] TABS 0-01 by mouth. College 19:06: of 52 Medicin e CALCIUM 2018-11 Yes Take by [facility] CARBONATE 0-01 mouth. College OR 19:06: of 52 Medicin e Multiple 2018-11 Yes 2472 125ug Take 125 [facility] Vitamins-Mi 0-01 mcg by Colleg e nerals 14:06: mouth of (VITAMIN D3 52 daily. Medici n COMPLETE e OR) Cyanocobala 2018-11 Yes 1471 Inject as Rafael min 1000 0-01 directed College MCG/ML KIT 14:06: every 30 of 52 days. Medicin e Vitamin D, 2018-11 Yes [id number] Take [facility] Ergocalc[facility] 0-01 50,000 [facility] [place], [address] 14:06: Units by of units CAPS 52 mouth. Medicin e B Complex 2018-11 Yes 1{tbl} Take 1 Tab [facility] TABS 0-01 by mouth. College 14:06: of 52 Medicin e CALCIUM 2018-11 Yes Take by [facility] CARBONATE 0-01 mouth. College OR 14:06: of 52 Medicin e Multiple Yes 2472 125ug Take 125 [facility] Vitamins-Mi 9-26 mcg by Colleg e nerals 14:14: mouth of (VITAMIN D3 49 daily. Medici n COMPLETE e OR) Cyanocobala Yes 1471 Inject as Rafael min 1000 9-26 directed College MCG/ML KIT 14:14: every 30 of 49 days. Medicin e Vitamin D, Yes [id number] Take [facility] 9-26 50,000 Colleg e rol, [address] 14:14: Units by of units CAPS 49 mouth. Medicin e B Complex Yes 1{tbl} Take 1 Tab [facility] TABS 07-28 by mouth. College 14:14: of 49 Medicin e CALCIUM Yes Take by [facility] CARBONATE 07-28 mouth. College OR 14:14: of 49 Medicin e triamcinolo Yes APPLY 4 [facility] ne 9-11 [facility] acetonide 00:00: IN MOUTH of (KENALOG) 00 BID UTD Medicin 0.1 % paste e triamcinolo Yes APPLY 4 [facility] ne 9-11 [facility] acetonide 00:00: IN MOUTH of (KENALOG) 00 BID UTD Medicin 0.1 % paste e triamcinolo 2018-2020- No APPLY 11/05 [facility] ne 9-11 07-27 [facility] acetonide 00:00: 00:00 IN MOUTH of (KENALOG) 00 :00 BID UTD Medicin 0.1 % paste e losartan Yes 1{tbl} Take 1 Tab [facility] (COZAAR) 1-18 by mouth [facility] 100 MG 00:00: once. of tablet 00 Medicin e losartan 2019-0 Yes 1{tbl} Take 1 Tab [facility] (COZAAR) 1-18 by mouth [facility] 100 MG 00:00: once. of tablet 00 Medicin e losartan 2019-0 Yes 1{tbl} Take 1 Tab [facility] (COZAAR) 1-18 by mouth [facility] 100 MG 00:00: once. of tablet 00 Medicin e losartan 2019-0 Yes 1{tbl} Take 1 Tab [facility] (COZAAR) 1-18 by mouth [facility] 100 MG 00:00: once. of tablet 00 Medicin e Desvenlafax 2019-0 Yes 1{tbl} Take 1 Tab Rafael ine 1-14 by mouth [facility] Succinate 00:00: once. of 50 MG TB24 00 Medicin e Desvenlafax 2018-0 Yes 1{tbl} Take 1 Tab [facility] ine 1-14 by mouth [facility] Succinate 00:00: once. of 50 MG TB24 00 Medicin e Desvenlafax 2018-0 Yes 1{tbl} Take 1 Tab [facility] ine 1-14 by mouth [facility] Succinate 00:00: once. of 50 MG TB24 00 Medicin e Desvenlafax 2018- Yes 1{tbl} Take 1 Tab [facility] ine 1-14 by mouth [facility] [place] [facility] Succinate 00:00: once. of 50 MG TB24 00 Medicin e Immunizations Ordered Immunization Filled Immunization Date Status Commen ts Source Name Name Influenza Quad-PF 2018-07-22 Completed [facility] 00:00:00 of Medicine Vital Signs Vital Name Observation Time Observation Value Comments Source Body height 2021-05-28 160 cm [facility] 19:17:00 of Medicine Body weight 2021-05-28 90.719 kg [facility] 19:17:00 of Medicine BMI 2021-05-28 35.43 kg/m2 [facility] 19:17:00 of Medicine Body weight 2021-04-03 89.359 kg [facility] 19:47:00 of Medicine BMI 2021-04-03 34.90 kg/m2 [facility] 19:47:00 of Medicine Systolic blood 2021-04-03 176 mm[Hg] [facility] Colleg e pressure 19:47:00 of Medicine Diastolic blood 2021-04-03 83 mm[Hg] [facility] ge pressure 19:47:00 of Medicine Heart rate 2021-04-03 55 /min SpO2--96% on [facility] 19:47:00 room air of Medicine Body temperature 2021-04-03 36.83 Mary [facility] Alfonso ege 19:47:00 of Medicine Respiratory rate 2021-04-03 16 /min [facility] ege 19:47:00 of Medicine Body height 2021-04-03 160 cm [facility] 19:47:00 of Medicine Systolic blood 2019-08-02 150 mm[Hg] [facility] Colleg e pressure 19:03:00 of Medicine Diastolic blood 2019-08-02 88 mm[Hg] [facility] ge pressure 19:03:00 of Medicine Heart rate 2019-08-02 81 /min [facility] 19:03:00 of Medicine Respiratory rate 2019-08-02 16 /min [facility] Alfonso ege 19:03:00 of Medicine Body height 2019-08-02 162.6 cm [facility] 19:03:00 of Medicine Body weight 2019-08-02 78.926 kg [facility] 19:03:00 of Medicine BMI 2019-08-02 29.87 kg/m2 [facility] 19:03:00 of Medicine Systolic blood 2019-08-02 150 mm[Hg] [facility] Colleg e pressure 19:03:00 of Medicine Diastolic blood 2019-08-02 88 mm[Hg] [facility] Colle ge pressure 19:03:00 of Medicine Heart rate 2019-08-02 81 /min [facility] 19:03:00 of Medicine Respiratory rate 2019-08-02 16 /min [facility] Alfonso ege 19:03:00 of Medicine Body height 2019-08-02 162.6 cm [facility] 19:03:00 of Medicine Body weight 2019-08-02 78.926 kg [facility] 19:03:00 of Medicine BMI 2019-08-02 29.87 kg/m2 [facility] 19:03:00 of Medicine Systolic blood 2019-07-28 164 mm[Hg] [facility] Colleg e pressure 14:13:00 of Medicine Diastolic blood 2019-07-28 97 mm[Hg] [facility] Colle ge pressure 14:13:00 of Medicine Heart rate 2019-07-28 73 /min [facility] 14:13:00 of Medicine Body height 2019-07-28 163.8 cm [facility] 14:13:00 of Medicine Body weight 2019-07-28 79.561 kg [facility] 14:13:00 of Medicine BMI 2019-07-28 29.64 kg/m2 [facility] 14:13:00 of Medicine Body temperature 2019-01-31 36.67 Mary [facility] Alfonso ege 18:00:00 of Medicine Respiratory rate 2019-01-31 16 /min [facility] Alfonso ege 18:00:00 of Medicine Procedures Procedure Date / Time Performed Performing Clinician Sour e CALCIUM 2021-04-03 20:45:00 Joy, [facility] of Medicine CALCIUM IONIZED 2021-04-03 20:45:00 Joy, [facility] of Medicine PTH INTACT 2021-04-03 20:45:00 Joy [facility] of Medicine PHOSPHORUS 2021-04-03 20:45:00 [facility] Medicine VITAMIN D 25 HYDROXY 2021-04-03 20:45:00 [facility] VITAMIN D 2021-04-03 20:45:00 Richy Hamilton [facility] Medicine Plan of Care Planned Activity Planned Date Details Comments Source Future Scheduled 2021-05-30 Screening for malignant [facility] Test 13:09:33 neoplasm of colon of Medicin e (procedure) [code = 000265935] Future Scheduled 2021-05-30 Screening for malignant [facility] Test 13:09:33 neoplasm of breast of Medici ne (procedure) [code = 019447115] Future Scheduled 2021-05-30 COVID-19 Vaccine (1) [facility] College Test 13:09:33 [code = COVID-19 of Medicine Vaccine (1)] Future Scheduled 2021-05-30 TETANUS SHOT (ADULT) [employer] [facility] Test 13:09:33 [code = TETANUS SHOT of Medi cine (ADULT)] Future Scheduled 2021-05-30 BMI FOLLOW UP PLAN [facility] Test 13:09:33 [code = BMI FOLLOW UP of Med icine PLAN] Future Scheduled 2021-05-30 Hepatitis C screening [facility] Test 13:09:33 (procedure) [code = of Medic ine 141839297] Future Scheduled 2021-05-30 Human immunodeficiency B [facility] Test 13:09:33 virus screening of Medicine (procedure) [code = 681535127] Future Scheduled 2021-05-30 Screening for malignant [facility] Test 13:09:33 neoplasm of cervix of Medici ne (procedure) [code = 340409495] Future Scheduled 2021-05-30 ZOSTER VACCINE (1 of 2) [facility] Test 13:09:33 [code = ZOSTER VACCINE of Tn dicine (1 of 2)] Future Scheduled 2021-05-30 FLU VACCINE > 6 MONTHS B [facility] College Test 13:09:33 [code = FLU VACCINE > 6 of M edicine MONTHS] Future Scheduled 2021-05-28 ORT - XR HIP RIGHT 2V Ordered: [facility] Test 14:17:52 (CHARGE ONLY) [code = 05/28/2021 of Med icine 88053] Future Scheduled 2021-05-28 ORT - XR PELVIS AP Ordered: [facility] [facility] Test 14:17:52 (CHARGE ONLY) [code = 05/28/2021 of Med icine 27272] Future Scheduled 2021-04-29 Screening for malignant [facility] Test 16:47:26 neoplasm of colon of Medicin e (procedure) [code = 933499307] Future Scheduled 2021-04-29 Screening for malignant [facility] Test 16:47:26 neoplasm of breast of Medici ne (procedure) [code = 017620856] Future Scheduled 2021-04-29 COVID-19 Vaccine (1) [facility] Test 16:47:26 [code = COVID-19 of Medicine Vaccine (1)] Future Scheduled 2021-04-29 TETANUS SHOT (ADULT) [facility] Test 16:47:26 [code = TETANUS SHOT of Medi cine (ADULT)] Future Scheduled 2021-04-29 BMI FOLLOW UP PLAN [facility] Test 16:47:26 [code = BMI FOLLOW UP of Med icine PLAN] Future Scheduled 2021-04-29 Hepatitis C screening [facility] Test 16:47:26 (procedure) [code = of Medic ine 710559815] Future Scheduled 2021-04-29 Human immunodeficiency B [facility] Test 16:47:26 virus screening of Medicine (procedure) [code = 152309626] Future Scheduled 2021-04-29 Screening for malignant [facility] Test 16:47:26 neoplasm of cervix of Medici ne (procedure) [code = 909450234] Future Scheduled 2021-04-29 ZOSTER VACCINE (1 of 2) [facility] Test 16:47:26 [code = ZOSTER VACCINE of Me dicine (1 of 2)] Future Scheduled 2021-04-29 FLU VACCINE > 6 MONTHS B [facility] Test 16:47:26 [code = FLU VACCINE > 6 of M edicine MONTHS] Future Scheduled 2021-04-03 VITAMIN D,25 HYDROXY & Ordered: B [facility] Test 15:18:41 1,25 DIHYDROXY,LC/MS 04/03/2021 of Medi cine [code = NOCPT] Diagnostic Test 2020-02-01 ALBUMIN [code = 1751-7] Expected: B [facility] Pending 00:00:00 02/01/2020, of Medicine Expires: 08/02/2020 Diagnostic Test 2020-02-01 CALCIUM [code = Expected: [facility] llege Pending 00:00:00 39864-7] 02/01/2020, of Medicine Expires: 08/02/2020 Diagnostic Test 2020-02-01 PTH INTACT [code = Expected: [facility] Pending 00:00:00 2731-8] 02/01/2020, of Medicine Expires: 08/02/2020 Diagnostic Test 2020-02-01 VITAMIN D 25 HYDROXY Expected: [facility] Pending 00:00:00 [code = 1989-3] 02/01/2020, of Medicine Expires: 08/02/2020 Future Scheduled COLON CANCER SCREENING: [facility] Test COLONOSCOPY [code = of Medic ine COLON CANCER SCREENING: COLONOSCOPY] Future Scheduled MAMMOGRAM ANNUAL [code [facility] Test = MAMMOGRAM ANNUAL] of Medic ine Future Scheduled TETANUS SHOT (ADULT) [employer] Test [code = TETANUS SHOT [...] SCREENING] of Medicine Future Scheduled CERVICAL CANCER [facility] Test SCREENING 3 YEAR FOLLOW of M edicine UP [code = CERVICAL CANCER SCREENING 3 YEAR FOLLOW UP] Future Scheduled FLU VACCINE > 6 MONTHS [facility] Test [code = FLU VACCINE > 6 of M edicine MONTHS] Future Scheduled BASIC METABOLIC PANEL Ordered: [facility] Test [code = 93924-3] 08/02/2019 of Medicine Future Scheduled COLON CANCER SCREENING: [facility] Test COLONOSCOPY [code = of Medic ine COLON CANCER SCREENING: COLONOSCOPY] Future Scheduled MAMMOGRAM ANNUAL [code [facility] Test = MAMMOGRAM ANNUAL] of Medic ine Future Scheduled TETANUS SHOT (ADULT) [employer] Test [code = TETANUS SHOT [...] SCREENING] of Medicine Future Scheduled CERVICAL CANCER [facility] Test SCREENING 3 YEAR FOLLOW of M edicine UP [code = CERVICAL CANCER SCREENING 3 YEAR FOLLOW UP] Future Scheduled FLU VACCINE > 6 MONTHS [facility] Test [code = FLU VACCINE > 6 of M edicine MONTHS] Encounters Start End Encounter Admission Attending Care Care Encounter Source Date/Time Date/Time Type Type Clinicians Facility Department ID 2022-03-14 Outpatient [facility] [id number] [place] 04:19:57 [id number] [facility] 2022-03-13 Outpatient CHRYSTAL [facility] [id number] [place] 13:46:41 LARS [id number] [facility] 2022-03-11 Outpatient [facility] [id number] [place] 06:55:58 [id number] [facility] 2022-03-10 Outpatient [facility] [id number] [place] 15:32:06 [id number] [facility] 2022-03-07 Outpatient [facility] [id number] [place] 06:32:09 [id number] [facility] 2022-02-20 Outpatient CHRYSTAL [facility] [id number] [place] 04:14:52 LARS [id number] [facility] 2022-02-19 Outpatient [facility] [id number] [place] 15:58:42 [id number] [facility] 2022-02-13 Outpatient CHRYSTAL [facility] [id number] [place] 13:36:41 LARS [id number] [facility] 2022-02-10 Outpatient [facility] [id number] [place] 09:04:50 [id number] [facility] 2022-02-07 Outpatient [facility] [id number] [place] 04:16:17 [id number] [facility] 2022-02-06 Outpatient MARIO [facility] [id number] [place] 09:29:06 GRISELDA [id number] [facility] 2022-02-05 Outpatient CHRYSTAL [facility] [id number] [place] 13:43:33 CADIZ [id number] [facility] 2022-02-04 Outpatient [facility] [id number] [place] 15:12:01 [id number] [facility] 2022-02-20 2022-02-20 Office Mario [facility] [id number] [place] 14:00:00 15:02:13 Visit Griselda MACE 350.1.13.58 H [facility] 9.2.7.2.686 [address] 0 [id number] 2022-02-13 2022-02-13 Office Chrystal [facility] [id number] [place] 14:00:00 14:13:40 Visit [facility]13.58 [facility] 9.2.7.2.686 [address] 8 [id number] 2022-02-06 2022-02-06 Office MarioLOI [facility] [id number] [place] 13:00:00 13:23:22 Visit Griselda [facility]ACE 350.1.13.58 [facility] 9.2.7.2.686 [address] 7 [id number] 5 2022-02-06 2022-02-06 Telephone Sarah Dalal [facility] [id number] [place] 00:00:00 00:00:00 Sarah Dalal 350.1.13.58 [facility] MEDICAL 9.2.7.2.686 PLA[address] 4 [id number] 5 2022-01-31 2022-01-31 Outpatient Heraclio BALDERAS [facility] [id number] [place] 03:40:00 03:40:00 0401 [facility] 2021-05-28 2021-05-28 Office RASHAAD Garcia [id number] [facility] 13:57:20 15:44:43 Visit Evangelistd AMBULATOR 350.1.13.21 College Y 0.2.7.2.686 of [id number] [facility] paul 600 e 2021-05-28 2021-05-28 Outpatient [facility] [id number] [facility] 14:18:26 14:18:26 Kaylan e of Medicin e 2021-05-28 2021-05-28 Outpatient RASHAAD MÁRQUEZ [facility] [id number] [address] [place] [address] 00:00:00 00:00:00 DOLORES Kimbrough e of Medicin e 2021-04-03 2021-04-03 Office KAUSHIK Hamilton [id number] [place] [address] 14:11:42 15:41:14 Visit Richy Senia 350.1.13.21 Co llege 0.2.7.2.686 of [id number] [facility] paul 510 e 2019-08-02 2019-08-02 Office Markie Travis [id number] 12:58:15 13:28:15 Visit AMBULATOR 350.1.13.21 Y 0.2.7.2.686 [id number] 2019-08-02 2019-08-02 Office Markie Travis [id number] [facility] 12:58:15 13:28:15 Visit AMBULATOR 350.1.13.21 College Y 0.2.7.2.686 [id number] [facility] 310 e Results Test Description Test Time [...] Indic ated, All Testing Perform ed At: [facility], [address] [place], [place] [id number] 4 Laboratory Dire ctor: Dc Alatorre M.D. CLIA Number [id number] Cap Accreditation N o. [id number] Lab Interpretation (test code = Abnormal 40443-7) [id number] 17:50:11 Test Item Value Reference Range Interpretation Comments CALCIUM IONIZED (test See_Comment Unless Otherwise code = 51376-8) Indicated, A ll Testing Performed At: [facility], [address] [place] [address] Laboratory Dir keith: Lucy Arias CLIA Number [id number] [employer] Accreditation [place]. [id number] [Automated mess age] The system which ge nerated this result transmit naye reference range : 4.70 - 5.90 MG/DL. The reference range was not u sed to interpret this result as normal/abnormal . [facility] 25 [id number] 13:21:50 Test Item Value Reference Range Interpretation [...] All Testing Per formed At: [facility] [employer], [address] [place] [address] Laboratory Dire ctor: Dc Alatorre M.D. CLIA Number [id number] Cap Accreditation [place] o. [id number] [id number] 12:29:11 Test Item Value Reference Range Interpretation Comments PHOSPHORUS (test code = See_Comment Unless Otherwise 2777-1) Indicated, All Testing Performed At: [facility], [address] [place] [address] Laboratory D irector: Dc riggs M.D. CLIA Number [id number] [employer] Accreditation [place] o. [id number] [Auto mated message] The sy stem which generated this result transmitted ref erence range: 2.5 - 4. 5 MG/DL. The reference r sol was not used to int erpret this result as normal/abnormal . [facility] 12:17:51 Test Item Value Reference Range Interpretation Comments CALCIUM (test code = See_Comment Unless Otherwise 62411-7) Indicated, All Testing Performed At: [facility], [address] [place] [address] Laboratory Dir keith: Lucy Arias CLIA Number [id number] [employer] Accreditation [place] o. 51885-57 [Automated mess age] The system which ge nerated this result transmit naye reference range : 8.5 - 10.5 MG/DL. The refe rence range was not used to interpret this result as normal/abnormal . [facility] [id number] 11:52:10 Test Item Value Reference Range Interpretation Comments PARATHYROID HORMONE 93 PG/ML 15-65 H Unless INTACT (test code = Maximino Terrell, 2731-8) All Testing Per formed At: [facility], [address] [place] [address] Laboratory Dire ctor: Dc riggs M.D. CLIA Num ej [id number] Cap Accreditation [place] o. [id number] Lab Interpretation Abnormal (test code = 75758-6) [facility] [id number] 17:53:00Surgical Pathology Report Case: [id number] Authorizing Provider: Richy Hamilton MD Collected: 01/18/2019 0850 Ordering Location: [facility] PERI[facility] Received: 01/18/2019 0940 SERVICES Pathologist: Dashawn Garg MD Specimen: Pa rathyroid, Left Lower Parathyroid PARATHYROID, LEFTLOWER, PARATHYROIDECTOMY: - HYPERCELLULAR PARATHYROID TISSUE - ADJACENT THYROID TISSUE WITH MILDHYPERLASTIC CHANGES Signing Pathologist Direct Phone Line: [phone] signed byDashawn Garg MD on 01/20/2019 at 5:53 [id number] hyperparathyroidismA. Left lower parathyroid The case is [...] is submitted entirely in cassette A1. SB/ewPerformed.PTH, [id number] 11:00:00 Test Item Value Reference Range Interpretation Comments PARATHYROID HORMONE INTACT 38.4 pg/mL 8.5-72.5 (BEAKER) (test code = 577) [id number] 10:47:00 Test Item Value Reference Range Interpretation Comments CALCIUM (BEAKER) (test code = 697) 9.3 mg/dL 8.4-10.2 POCT-GLUCOSE [id number] 10:19:00 Test Item Value Reference Range Interpretation Comments POC-GLUCOSE METER 92 mg/dL 70-110 TESTED AT [place] [id number] [facility] ([facility] = [facility] [address] 1538) PTH, [id number] 09:18:00 Test Item Value Reference Range Interpretation Comments PARATHYROID HORMONE INTACT 53.7 pg/mL 8.5-72.5 (BEAKER) (test code = 577) post 3PTH, [id number] 09:14:00 Test Item Value Reference Range Interpretation Comments PARATHYROID HORMONE INTACT 61.6 pg/mL 8.5-72.5 (BEAKER) (test code = 577) Post 2PTH, [id number] 09:10:00 Test Item Value Reference Range Interpretation Comments PARATHYROID HORMONE INTACT 73.1 pg/mL 8.5-72.5 H (BEAKER) (test code = 577) Post-#1PTH, [id number] 09:09:00 Test Item Value Reference Range Interpretation Comments PARATHYROID HORMONE INTACT 114.6 pg/mL 8.5-72.5 H (BEAKER) (test code = 577) Pre #2PTH, [id number] 08:37:00 Test Item Value Reference Range Interpretation Comments PARATHYROID HORMONE INTACT 160.2 pg/mL 8.5-72.5 H (BEAKER) (test code = 577) POCT-GLUCOSE [id number] 06:22:00 Test Item Value Reference Range Interpretation Comments POC-GLUCOSE METER 109 mg/dL 70-110 TESTED AT [facility] 67[facility] ([facility]) (test code = [facility] 1538) [id number] 11:01:00 Test Item Value Reference Range Interpretation Comments SODIUM (BEAKER) (test code = 381) 140 meq/L 136-145 POTASSIUM (BEAKER) (test code = 4.4 meq/L 3.5-5.1 379) CHLORIDE (BEAKER) (test code = 382) 106 meq/L 98-107 CO2 (BEAKER) (test code = 355) 28 meq/L 22-29 [id number] 11:01:00 Test Item Value Reference Range Interpretation Comments GLUCOSE RANDOM (BEAKER) (test code = 67 mg/dL 70-105 L 652) BUN AND [id number] 11:01:00 Test Item Value Reference Range Interpretation Comments BLOOD UREA NITROGEN 14 mg/dL 7-21 (BEAKER) (test code = 354) CREATININE (BEAKER) 0.70 mg/dL 0.57-1.25 (test code = 358) EGFR (BEAKER) (test 87 mL/min/1.73 ESTIMA NAYE GFR IS code = 1092) sq m NOT ACCURATE CREATININE CLEARANCE IN PREDICTING GLOMERULAR FILTRATION RATE . ESTIMATED GFR I S NOT APPLICABLE FOR DIALYSIS PATIEN TS. [id number] 10:15:00 Test Item Value Reference Range Interpretation Comments HEMOGLOBIN (BEJADE) (test code = 13.5 GM/DL 11.2-15.7 410) CT, SOFT TISSUE NECK, WITHOUT / WITH IV [id number] 13:21:00FINAL REPORT EXAMINATION: CT of the neck [...] remaining of the studies are unremarkable Signed: Jose Andrea MDReport Verified Date/Time: 12/20/2018 13:21:13 US, [id number] 13:18:00Reason for Exam:->E21.0FINAL REPORT EXAM: Thyroid UltrasoundINDICATION: [...] FNA. No parathyroid adenoma Signed: Derick Zelaya Verified Date/Time: 12/20/2018 13:18:13 POCT-CREATININE 2018-12-20 10:54:00 Test Item Value Reference Range Interpretation Comments POC-CREATININE 0.7 mg/dL 0.6-1.3 TESTED AT [facility] 7[address] ([facility]) (test YAEL D G A code = 1859) [facility] 7703 0 POC-EGFR 87 mL/min/1.73M2 [facility] (test code = 1860)
[2022-03-17 23:23] LABS: Absolute Lymphocytes (CBC) 1.1 K/uL (0.7-4.9); Protime INR 0.99
[2022-03-17 23:27] LABS: Lymphocytes % 27.5 % (15.3-44.8); MPV 9.7 fL (7.6-11.3)
[2022-03-17 23:40] LABS: ALT/SGPT 14 U/L (12-78); AST/SGOT 15 U/L (15-37); Albumin 3.4 g/dL (3.4-5.0); Alkaline Phosphatase 91 U/L (45-117); BUN Blood Urea Nitrogen 10 mg/dL (7-18); Bicarbonate 24 mmol/L (21-32); Bilirubin Total 0.3 mg/dL (0.2-1.0); Glomerular Filtration Rate 102 ml/min (=/>90); Glucose Level 98 mg/dL (74-106); Magnesium 2.1 mg/dL (1.8-2.4); NT PRO-BNP 69 pg/mL (<125); Potassium 3.6 mmol/L (3.5-5.1); Protein, Total 6.6 g/dL (6.4-8.2); Sodium Level 142 mmol/L (136-145); Troponin High Sensitivity 5.1 pg/mL (<58.9)
[2022-03-17 23:46] LABS: Bilirubin Direct < 0.1 mg/dL (0-0.2)
--- NOTE | 2022-03-18 00:05 | ER ---
Nurse's Notes [facility] Name: Miryam Sharma Age: 61 yrs Sex: Female : 1960 Arrival Date: 03/17/2022 Time: 21:17 Bed 18 Private MD: Diagnosis: Chest pain, unspecified Presentation: 03/17 21:28 Chief complaint: Patient states: Chest pain on and off since this morning - radiates to ld1 back. Coronavirus screen: At this time, the client does not indicate any symptoms associated with coronavirus-19. Ebola Screen: No symptoms or risks identified at this time. Initial Sepsis Screen: Does the patient meet any 2 criteria? No. Patient's initial sepsis screen is negative. Does the patient have a suspected source of infection? No. Patient's initial sepsis screen is negative. Risk Assessment: Do you want to hurt yourself or someone else? Patient reports no desire to harm self or others. Onset of symptoms was March 17, 2022. 21:28 Method Of Arrival: Ambulatory ld1 21:28 Acuity: KARLY 3 ld1 Triage Assessment: 21:35 General: Appears in no apparent distress. comfortable, Behavior is calm, cooperative, ld1 appropriate for age. Pain: Complains of pain in chest Pain radiates to back Pain currently is 7 out of 10 on a pain scale. Quality of pain is described as pressure, throbbing. EENT: No signs and/or symptoms were reported regarding the EENT system. Neuro: Level of Consciousness is awake, alert, obeys commands, Oriented to person, place, time, situation. Cardiovascular: Capillary refill < 3 seconds Patient's skin is warm and dry. Rhythm is sinus rhythm. Respiratory: Airway is patent Respiratory effort is even, unlabored. GI: No signs and/or symptoms were reported involving the gastrointestinal system. Derm: No signs and/or symptoms reported regarding the dermatologic system. Historical: - Home Meds: 21:35 Abilify 5 mg Oral tab 1 tab once daily [Active]; bisoprolol-hydrochlorothiazide ld1 2.5-6.25 mg Oral tab 1 tab once daily [Active]; hydralazine 50 mg Oral tab 1 tab 3 times per day [Active]; losartan Oral [Active]; Pristiq 50 mg Oral Tb24 1 tab once daily [Active]; - PMHx: 21:35 ADD/ADHD; Anxiety; Depression; GI Bleed; Hypertension; TIA; ld1 - PSHx: 21:35 section; Cholecystectomy; Gastric Bypass; Total abdominal hysterectomy; ld1 parathyroid removal; - Immunization history:: Adult Immunizations up to date, Client reports receiving the 2nd dose of the Covid vaccine. - Social history:: Smoking status: Patient denies any tobacco usage or history of. Patient/guardian denies using alcohol. Screenin:50 Abuse screen: Denies threats or abuse. Denies injuries from another. Nutritional lp1 screening: No deficits noted. Tuberculosis screening: No symptoms or risk factors identified. Fall Risk None identified. Assessment: 23:20 General: Appears in no apparent distress. Behavior is calm, cooperative, appropriate lp1 for age. Pain: Complains of pain in chest Pain currently is 0 out of 10 on a pain scale. Pain began suddenly. Neuro: Level of Consciousness is awake, alert, obeys commands, Oriented to person, place, time, situation. Cardiovascular: Patient's skin is warm and dry. Rhythm is regular. Respiratory: Respiratory effort is even, unlabored, Denies shortness of breath. GI: No signs and/or symptoms were reported involving the gastrointestinal system. : No signs and/or symptoms were reported regarding the genitourinary system. EENT: No signs and/or symptoms were reported regarding the EENT system. Derm: Skin is pink, warm \T\ dry. Musculoskeletal: No deficits noted. 03/18 00:14 Reassessment: Patient reports due for nighttime dose of Hydralazine 50mg PO tonight; lp1 Provider notified, verbal order to administer Hydralazine 50mg PO now. Vital Signs: 03/17 21:28 BP 175 / 88; Pulse 60; Resp 18; Temp 98.1(O); Pulse Ox 99% on R/A; Weight 93.44 kg; ld1 Height 5 ft. 4 in. (162.56 cm); Pain 7/10; 23:30 BP 154 / 84; Pulse 62; Resp 13; Pulse Ox 99% on R/A; Pain 0/10; lp1 03/18 00:30 BP 168 / 83; Pulse 52; Resp 12; Pulse Ox 100% on R/A; lp1 02:00 BP 166 / 80; Pulse 59; Resp 12; Pulse Ox 100% on R/A; as6 03/17 21:28 Body Mass Index 35.36 (93.44 kg, 162.56 cm) ld1 ED Course: 03/17 21:17 Patient arrived in ED. ja2 21:29 Triage completed. ld1 21:35 Arm band placed on right wrist. ld1 21:36 EKG completed in triage. Results shown to MD. ld1 22:28 Tank Murlilo PA is PHCP. cp 22:28 Maciej Oliver MD is Attending Physician. cp 22:49 Gabby Schwab, STEPHANIA is Primary Nurse. lp1 23:13 Inserted saline lock: 20 gauge in right antecubital area, using aseptic technique. ds4 Blood collected. 23:30 Patient has correct armband on for positive identification. Bed in low position. Call lp1 light in reach. Client placed on continuous cardiac and pulse oximetry monitoring. NIBP monitoring applied. 23:33 XRAY Chest (1 view) In Process Unspecified. EDMS 23:51 Patient maintains SpO2 saturation greater than 95% on room air. lp1 03/18 00:04 Delvis Desai MD is Hospitalizing Provider. cp 00:35 No provider procedures requiring assistance completed. Patient admitted, IV remains in lp1 place. Administered Medications: 00:03 Drug: Aspirin Chewable Tablet 324 mg Route: PO; lp1 03:11 Follow up: Response: No adverse reaction lp1 00:15 Drug: HydrALAZINE 50 mg {Note: Verbal order per PUJA Chris.} Route: PO; lp1 03:10 Follow up: Response: No adverse reaction lp1 Medication: 03/17 23:50 VIS not applicable for this client. lp1 Outcome: 03/18 00:04 Decision to Hospitalize by Provider. cp 00:35 Condition: stable lp1 00:35 Instructed on the need for admit. 03:00 Admitted to Med/surg via wheelchair, room 232, with chart, Report called to STEPHANIA Monzon lp1 03:10 Patient left the ED. lp1 Signatures: Dispatcher [employer] EDAZ Gabby Schwab RN RN lp1 Kan Soria ds4 Tank Murillo PA PA cp Verena Larsen, STEPHANIA RN ld1 Niya Horne 2 Slawson, Cory, RN RN as6
--- NOTE | 2022-03-18 00:05 | EDPHYS ---
Physician Documentation [facility] Name: Miryam Sharma Age: 61 yrs Sex: Female : 1960 Arrival Date: 03/17/2022 Time: 21:17 Bed 18 Private MD: ED Physician Maciej Oliver HPI: 03/17 23:00 This 61 yrs old Female presents to ER via Ambulatory with complaints of Chest Pain, cp Back Pain, Dizziness. 23:00 The patient or guardian reports chest pain that is located primarily in the anterior cp chest wall, left. Onset: today, about 1900 while sitting at home. The pain radiates to between shoulder blades. Associated signs and symptoms: Pertinent positives: dizziness, Pertinent negatives: abdominal pain, cough, diaphoresis, lower extremity pain, lower extremity swelling, palpitations, shortness of breath, syncope, vomiting. The chest pain is described as a pressure. Duration: The patient or guardian reports a single episode, that is now resolved. Historical: - Home Meds: 21:35 Abilify 5 mg Oral tab 1 tab once daily [Active]; bisoprolol-hydrochlorothiazide ld1 2.5-6.25 mg Oral tab 1 tab once daily [Active]; hydralazine 50 mg Oral tab 1 tab 3 times per day [Active]; losartan Oral [Active]; Pristiq 50 mg Oral Tb24 1 tab once daily [Active]; - PMHx: 21:35 ADD/ADHD; Anxiety; Depression; GI Bleed; Hypertension; TIA; ld1 - PSHx: 21:35 section; Cholecystectomy; Gastric Bypass; Total abdominal hysterectomy; ld1 parathyroid removal; - Immunization history:: Adult Immunizations up to date, Client reports receiving the 2nd dose of the Covid vaccine. - Social history:: Smoking status: Patient denies any tobacco usage or history of. Patient/guardian denies using alcohol. ROS: 23:05 Constitutional: Negative for body aches, chills, fever, poor PO intake. cp 23:05 Eyes: Negative for injury, pain, redness, and discharge. cp 23:05 ENT: Negative for drainage from ear(s), ear pain, sore throat, difficulty swallowing, difficulty handling secretions. 23:05 Cardiovascular: Positive for chest pain, Negative for edema, palpitations. 23:05 Respiratory: Negative for cough, shortness of breath, wheezing. 23:05 Abdomen/GI: Negative for abdominal pain, nausea, vomiting, and diarrhea. 23:05 Back: Positive for radiated pain, of the between shoulder blades. 23:05 Neuro: Positive for dizziness, Negative for altered mental status, numbness, syncope, weakness. 23:05 All other systems are negative. Exam: 21:30 ECG was reviewed by the Attending Physician. cp 23:10 Constitutional: The patient appears in no acute distress, alert, awake, cp non-diaphoretic, non-toxic, well developed, well nourished, obese. 23:10 Head/Face: Normocephalic, atraumatic. cp 23:10 Eyes: Periorbital structures: appear normal, Conjunctiva: normal, no exudate, no injection, Sclera: no appreciated abnormality, Lids and lashes: appear normal, bilaterally. 23:10 ENT: External ear(s): are unremarkable, Nose: is normal, Mouth: Lips: moist, Oral mucosa: moist, Posterior pharynx: Airway: no evidence of obstruction, patent. 23:10 Neck: ROM/movement: is normal, is supple, without pain, no range of motions limitations. 23:10 Chest/axilla: Inspection: normal. 23:10 Cardiovascular: Rate: normal, Rhythm: regular, Edema: is not appreciated. 23:10 Respiratory: the patient does not display signs of respiratory distress, Respirations: normal, no use of accessory muscles, no retractions, labored breathing, is not present, Breath sounds: are clear throughout, no decreased breath sounds, no stridor, no wheezing. 23:10 Abdomen/GI: Inspection: abdomen appears normal, Palpation: abdomen is soft and non-tender, in all quadrants. 23:10 Back: ROM is normal, CVA tenderness, is absent. 23:10 Neuro: Orientation: to person, place \\T\\ time. Mentation: is normal, Motor: moves all fours, strength is normal, Sensation: is normal. Vital Signs: 21:28 BP 175 / 88; Pulse 60; Resp 18; Temp 98.1(O); Pulse Ox 99% on R/A; Weight 93.44 kg; ld1 Height 5 ft. 4 in. (162.56 cm); Pain 7/10; 23:30 BP 154 / 84; Pulse 62; Resp 13; Pulse Ox 99% on R/A; Pain 0/10; lp1 03/18 00:30 BP 168 / 83; Pulse 52; Resp 12; Pulse Ox 100% on R/A; lp1 02:00 BP 166 / 80; Pulse 59; Resp 12; Pulse Ox 100% on R/A; as6 03/17 21:28 Body Mass Index 35.36 (93.44 kg, 162.56 cm) ld1 MDM: 03/17 22:57 Patient medically screened. 03/18 00:00 Data reviewed: vital signs, nurses notes, lab test result(s), EKG, radiologic studies, cp plain films. 00:00 Test interpretation: by ED physician or midlevel provider: ECG, plain radiologic cp studies. 00:10 The patient was given aspirin in the Emergency Department. 00:10 Physician consultation: Delvis Desai MD was called at 00:05, was contacted at 00:05, regarding admission, to the telemetry unit. patient's condition. 01:15 Admission orders: after a detailed discussion of the patient's condition and case, the admit orders are written by mi. 03/17 22:58 Order name: Basic Metabolic Panel; Complete Time: 23:55 03/17 23:55 Interpretation: Normal except: CL 112. 03/17 22:58 Order name: CBC with Diff; Complete Time: 23:55 03/17 23:55 Interpretation: Normal except: WBC 4.1; HGB 10.2; HCT 31.0; MCV 77.5; MCH 25.4; RDW cp 16.4. 03/17 22:58 Order name: LFT's; Complete Time: 23:55 03/17 22:58 Order name: Magnesium; Complete Time: 23:55 03/17 22:58 Order name: NT PRO-BNP; Complete Time: 23:55 03/17 22:58 Order name: PT-INR; Complete Time: 23:55 03/17 22:58 Order name: Troponin HS; Complete Time: 23:55 03/17 23:56 Interpretation: Troponin HS 5.1; Reviewed. 03/17 22:58 Order name: XRAY Chest (1 view) 03/18 00:52 Order name: COVID-19 SARS RT PCR (Document "Date of Onset" if Symptomatic) lp1 03/18 00:58 Order name: Basic Metabolic Panel EDMS 03/18 00:58 Order name: Basic Metabolic Panel EDMS 03/18 00:58 Order name: CBC with Automated Diff EDMS 03/18 00:58 Order name: CBC with Automated Diff EDMS 03/17 21:37 Order name: EKG - Nurse/Tech; Complete Time: 21:37 ld1 03/17 22:58 Order name: EKG; Complete Time: 22:59 cp 03/17 22:58 Order name: Cardiac monitoring; Complete Time: 23:39 cp 03/17 22:58 Order name: IV Saline Lock; Complete Time: 23:12 cp 03/17 22:58 Order name: Labs collected and sent; Complete Time: 23:13 cp 03/17 22:58 Order name: O2 Per Protocol; Complete Time: 23:13 cp 03/17 22:58 Order name: O2 Sat Monitoring; Complete Time: 23:13 cp 03/18 00:58 Order name: Regular EDMS 03/18 00:58 Order name: EKG Electrocardiogram EDMS 03/18 00:58 Order name: EKG Electrocardiogram EDMS 03/18 00:58 Order name: EKG Electrocardiogram EDMS 03/18 00:58 Order name: EKG Electrocardiogram EDMS EC/16 21:30 Rate is 59 beats/min. Rhythm is regular. NV interval is normal. QRS interval is normal. cp QT interval is normal. T waves are Inverted in lead aVR. Interpreted by me. Reviewed by me. Administered Medications: 03/18 00:03 Drug: Aspirin Chewable Tablet 324 mg Route: PO; lp1 03:11 Follow up: Response: No adverse reaction lp1 00:15 Drug: HydrALAZINE 50 mg {Note: Verbal order per PA. Dot} Route: PO; lp1 03:10 Follow up: Response: No adverse reaction lp1 Disposition: 05:26 Co-signature as Attending Physician, Maciej Oliver MD. [email or web address] Disposition Summary: 03/18/22 00:04 Hospitalization Ordered Hospitalization Status: Observation cp Provider: Delvis Desai cp Location: Telemetry/MedSurg (observation) cp Condition: Stable cp Problem: new cp Symptoms: have improved cp Bed/Room Type: Standard cp Room Assignment: 232(03/18/22 02:17) cg Diagnosis - Chest pain, unspecified cp Forms: - Medication Reconciliation Form cp - SBAR form cp Signatures: Dispatcher [employer] Gabby Maria RN RN lp1 Tank Murillo PA PA cp Garcia, Cindy, RN RN cg Maciej Oliver MD MD mh7 Verena Larsen RN RN ld1 Corrections: (The following items were deleted from the chart) : 00:04 cp cg
[2022-03-18] MEDS ORDERED: ASPIRIN 81 MG CHEWABLE TABLET ONE (00:06)
[2022-03-18] MEDS ORDERED: HYDRALAZINE HCL 25 MG TABLET ONE (00:14)
[2022-03-18] MEDS ORDERED: ACETAMINOPHEN 500 MG TAB PO PRN (00:49)
[2022-03-18] MEDS ORDERED: ONDANSETRON 4 MG/2 ML VIAL IV PRN (00:49)
[2022-03-18] MEDS ORDERED: MORPHINE 2 MG/ML SYR IV PRN (00:49)
[2022-03-18] MEDS ORDERED: ENOXAPARIN 40 MG/0.4 ML SQ ONE (00:52)
[2022-03-18 04:13] VITALS: BMI 35.5
[2022-03-18 04:39] LABS: Urine Appearance Clear (Clear); Urine Bilirubin Negative (Negative); Urine Blood Negative (Negative); Urine Color Yellow (Yellow); Urine Glucose Negative (Negative); Urine Protein Negative (Negative); Urine Urobilinogen 0.2 mg/dL (0.2-1.0); Urine pH 5.5 (5.0-7.0)
[2022-03-18 04:40] LABS: Urine Microscopic Reflex ORDER UMIC
[2022-03-18 04:47] LABS: Urine Bacteria >50 /HPF (<20); Urine RBC <5 /HPF (NONE SEEN)
[2022-03-18] MEDS ORDERED: LORazepam 2 MG/ML VIAL IV PRN (08:18)
--- NOTE | 2022-03-18 08:48 | RAD REPORT ---
EXAM DESCRIPTION: CT - Angio Aorta For Dissection - 03/18/2022 8:31 am CLINICAL HISTORY: chest pain COMPARISON: None. TECHNIQUE: Dynamically enhanced 3 mm thick images of the chest, abdomen, and upper pelvis were obtai césar during administration of approximately 150mL Isovue 370 IV contrast. Sagittal and coronal reconst ruction images were generated using MIP and reviewed. Exam utilizes a protocol to evaluate entire cou rse of the aorta. All CT scans are performed using dose optimization technique as appropriate and may include automated exposure control or mA/KV adjustment according to patient size. FINDINGS: Aorta is normal in diameter with no dissection or other acute aortic findings. Reconstruct ion images show no significant findings. Three vessel aortic arch shows no great vessel origins steno ses. Pulmonary arteries are normal as well. No cardiomegaly, pericardial thickening or pericardial effusio n. No mass or infiltrate in the lung parenchyma. No pleural thickening, pleural effusion or pneumothorax . No abnormal mediastinal or hilar mass or lymphadenopathy seen. No chest wall mass or abnormal axillar y lymphadenopathy. Celiac, SMA and renal arteries show no suspicious findings. No suspicious findings in the solid abdom inal viscera. Postsurgical changes are evident at the GE junction. Stomach and esophagus show no wall thickening or edema. No dilated large or small bowel loops. There is minimal enhancement of the wall s of the sigmoid colon without wall thickening, edema or adjacent stranding. This is not likely signi ficant in the absence of any localized lower pelvic symptoms. Uterus is absent. No ovarian abnormality seen. No mass or abnormal lymphadenopathy. No free air, jesus e fluid or inflammatory stranding. No urinary bladder abnormality. Scattered disc and bone degenerative changes are present. There is minimal anterior subluxation of L4 on L5. L4-5 degenerative disc disease and facet degenerative changes noted. No acute or pathologic b one process. IMPRESSION: Negative CT scan of the aorta for acute or significant finding. As detailed above, nonacute findings are present not regarded as significant. No other significant findings on chest, abdomen and upper pelvis examination.
[2022-03-18] MEDS ORDERED: HOME MED 1 EA UNK (Hydralazine Hcl [Hydralazine Hcl] 50 MG Tablet) PO SCH (09:00)
[2022-03-18] MEDS ORDERED: DESVENLAFAXINE SUCCINATE 50 MG ER TAB PO SCH (09:00)
[2022-03-18] MEDS ORDERED: BISOPROLOL 5 MG TABLET PO SCH ×2 (09:00)
[2022-03-18] MEDS ORDERED: ASPIRIN EC 81 MG TAB PO SCH (09:00)
[2022-03-18] MEDS ORDERED: LOSARTAN POTASSIUM 50 MG TABLET PO SCH (09:00)
[2022-03-18] MEDS ORDERED: HOME MED 1 EA UNK (Losartan Potassium [Cozaar] 100 MG Tablet) PO SCH (09:00)
[2022-03-18] MEDS ORDERED: ARIPiprazole 5 MG TAB PO SCH (09:00)
[2022-03-18] MEDS: HYDRALAZINE HCL 25 MG TABLET PO SCH ×2 (09:28→13:35)
--- NOTE | 2022-03-18 09:33 | EKG ---
Test Date: 2022-03-17 Test Time: 21:23:30 Senior Energy Consultant: MARY MEASUREMENT RESULTS: Intervals: Rate: 59 ME: 194 QRSD: 80 QT: 446 QTc: 441 Bison: P: 56 ME: 194 QRS: 25 T: 17 INTERPRETIVE STATEMENTS: Sinus bradycardia Cannot rule out Anterior infarct, age undetermined Abnormal ECG Compared to ECG 08/29/2019 12:39:21 Myocardial infarct finding now present Sinus rhythm no longer present Electronically Signed On 03-18-22 09:32:05 CDT by Kushal Marroquin
[2022-03-18 09:54] VITALS: O2SAT 98
[2022-03-18 12:10] VITALS: BP 144/77; TEMP 97.1
--- NOTE | 2022-03-18 12:46 | RAD REPORT ---
EXAM DESCRIPTION: RAD - Chest Single View - 03/17/2022 11:31 pm CLINICAL HISTORY: 61-year-old female with chest pain. TECHNIQUE: Single view, AP portable chest was obtained. COMPARISON: None. FINDINGS: Unremarkable cardiac and mediastinal silhouette. Heart size is top normal. Tortuous athero sclerotic thoracic aorta. Low lung volumes grossly clear without focal opacity, pneumothorax or pleural effusions. The visual ized bones are within normal limits. IMPRESSION: No acute cardiopulmonary abnormalities. Electronically signed by: Maria Del Rosario Green MD 03/17/2022 11:43 PM CDT Due to temporary technical issues with the PACS/Fluency reporting system, reports are being signed by the in house radiologists without review as a courtesy to insure prompt reporting. The interpreting radiologist is fully responsible for the content of the report.
--- NOTE | 2022-03-18 12:53 | P.SSS ---
Patient History Date of Service: 03/18/22 Reason for admission: CHEST PAIN History of Present Illness: DANA IS NON SMOKER WITH ANXIETY AND DEPRESSION HAS CHEST PAIN WITH RADIATION TO BACK AT REST. SHE HAS NO DYSPNEA, OR NAUSEA. SHE IS STABLE. LAST PAIN 11 PM. Allergies No Known Allergies Allergy (Verified 03/18/22 03:43) Home medications list reviewed: Yes Home Medications: ARIPiprazole [Abilify] 5 mg PO DAILY 03/18/22 Desvenlafaxine Succinate [Pristiq ER] 50 mg PO DAILY 03/18/22 Hydralazine HCl 50 mg PO TID 03/18/22 Losartan Potassium [Cozaar] 100 mg PO DAILY 03/18/22 bisoproloL fumarate [Zebeta] 5 mg PO DAILY 03/18/22 - Past Medical/Surgical History Has patient received pneumonia vaccine in the past: No Diabetic: No -: DEPRESSION -: -: CHOLECYSTECTOMY -: GASTRIC BYPASS -: PARTIAL HYSTERECTOMY -: KIDNEY STONES - Family History Mother -: Hypertension Father -: Heart disease, Diabetes, Stroke Notes: HI - Social History Smoking Status: Never smoker Alcohol use: No CD- Drugs: No Caffeine use: Yes Place of Residence: Home Review of Systems 10-point ROS is otherwise unremarkable Physical Examination - Vital Signs Temperature: 97.1 F Blood Pressure: 144/77 Pulse: 61 Respirations: 16 Pulse Ox (%): 97 - Physical Exam General: Alert, In no apparent distress HEENT: Atraumatic, PERRLA, Mucous membr. moist/pink, EOMI, Sclerae nonicteric Neck: Supple, 2+ carotid pulse no bruit, No LAD, Without JVD or thyroid abnormality Respiratory: Clear to auscultation bilaterally, Normal air movement Cardiovascular: Regular rate/rhythm, Normal S1 S2 Gastrointestinal: Normal bowel sounds, No tenderness Musculoskeletal: No tenderness Integumentary: No rashes Neurological: Normal gait, Normal speech, Normal strength at 5/5 x4 extr, Normal tone, Normal affect Lymphatics: No axilla or inguinal lymphadenopathy - Studies Laboratory Data (last 24 hrs) 03/17/22 23:10: PT 10.9, INR 0.99 03/17/22 23:10: WBC 4.1 L, Hgb 10.2 L, Hct 31.0 L, Plt Count 156 03/17/22 23:10: Sodium 142, Potassium 3.6, BUN 10, Creatinine 0.64, Glucose 98, Magnesium 2.1, Total Bilirubin 0.3, AST 15, ALT 14, Alkaline Phosphatase 91 - Diagnosis (Problem(s)) (1) Atypical chest pain Current Visit: Yes Status: Acute Plan: CE NEG. CT DISSECTION PROTOCOL NEG. EKG UNREMARKABLE. CONSULT DR. العراقي BEFORE DISCHARGE. STABLE FOR OUTPATIENT ST TEST. (2) Anxious depression Current Visit: Yes Status: Acute - Disposition Disposition: ROUTINE DISCHARGE
--- NOTE | 2022-03-18 21:57 | CON ---
Date of Consultation: 03/18/2022 Reason For Consultation: Hypertension and chest pain. History Of Present Illness: Ms. Sharma is a 61-year-old woman who has a history of attention defic it disorder, anxiety, depression, history of GI bleed, hypertension, and a TIA in the past. She came in with a blood pressure of 202/99 with some sternal chest pressure, dizziness, and back pain as wel l as headache. Denied any nausea, vomiting, diaphoresis, PND, orthopnea, pedal edema, palpitations, or syncope. Denied any fever or chills. OK has been ruled out already. Past Medical History: As stated above. Allergies: NONE. Review of Systems: Negative. Social History: Negative. Family History: Positive for heart disease. Her grandfather had an OK in his 50s. Her mom has atri al fibrillation. Medications: Include Abilify, aspirin, Zebeta, hydralazine as well as losartan. Physical Examination: Vital Signs: Blood pressure was 202/99 that has improved after treatment. She is in sinus rhythm, a febrile. General: No acute distress. No chest pain. HEENT: Negative. Neck: Supple. No bruit. Chest: Clear. Cardiac: Regular rhythm and rate with an S4 gallop. No murmurs or rubs. Abdomen: Benign. Extremities: No clubbing, cyanosis, or edema. Diagnostic Data: All within normal limits. Impression And Plan: Atypical chest pain, most likely secondary to hypertension. Echocardiogram is pending. I will make an arrangement for an outpatient MPI. She can go home whenever it is okay with Dr. Desia. Her other problems include attention deficit disorder, anxiety and depression for which she takes Abilify. She had a transient ischemic attack years ago with a negative workup. She has chamberlain d a history of gastrointestinal bleed in the past that has resolved. Again, she can go home after he r echocardiogram. I will make arrangements for outpatient stress test, consider increasing the dose of Zebeta or hydralazine. JOSELIN/ROBER Voice ID: [id number] Report ID: [id number]
--- NOTE | 2022-03-19 07:49 | ECHO ---
HEIGHT: 5 ft 4 in WEIGHT: 207 lb 0 oz DATE OF STUDY: 03/18/[address]: Kushal Marroquin MD 2-DIMENSIONAL: YES M.MODE: YES DOPPLER: YES COLOR FLOW: YES TDS: PORTABLE: YES DEFINITY: BUBBLE STUDY: DIAGNOSIS: CHEST PAIN CARDIAC HISTORY: CATHERIZATION: NO SURGERY: NO PROSTHETIC VALVE: NO PACEMAKER: NO MEASUREMENTS (cm) DIASTOLIC (NORMALS) SYSTOLIC (NORMALS) IVSd 1.1 (0.6-1.2) LA Diam 2.9 (1.9-4.0) LVEF 70% LVIDd 3.4 (3.5-5.7) LVIDs 2.1 (2.0-3.5) %FS 39% LVPWd 1.1 (0.6-1.2) Ao Diam 2.5 (2.0-3.7) 2 DIMENSIONAL ASSESSMENT: RIGHT ATRIUM: NORMAL LEFT ATRIUM: NORMAL RIGHT VENTRICLE: NORMAL LEFT VENTRICLE: NORMAL TRICUSPID VALVE: NORMAL MITRAL VALVE: NORMAL PULMONIC VALVE: NORMAL AORTIC VALVE: NORMAL PERICARDIAL EFFUSION: NONE AORTIC ROOT: NORMAL LEFT VENTRICULAR WALL MOTION: DOPPLER/COLOR FLOW: COMMENTS: NORMAL 2-DIMENSIONAL ECHOCARDIOGRAM WITH DOPPLER. NO MITRAL VALVE PROLAPSE. NO EFFUSION. TECHNOLOGIST: KATIUSKA LANDON
== END 2022-03-18 15:16 | disposition home or self-care (01) ==
LOC: ER 21:14 → ERHOLD 03-18 00:51 → 2ND 03-18 03:00
PROVIDERS: ADMIT Internal Medicine; ATTEND Internal Medicine
DX: R07.89 Other chest pain (principal); I10 Essential (primary) hypertension; F98.8 Other specified behavioral and emotional disorders with onset usually occurring in childhood and adolescence; F41.9 Anxiety disorder, unspecified; F32.A Depression, unspecified; Z86.73 Personal history of transient ischemic attack (TIA), and cerebral infarction without residual deficits; Z20.822 Contact with and (suspected) exposure to COVID-19; Z79.82 Long term (current) use of aspirin; Z79.899 Other long term (current) drug therapy; Z90.49 Acquired absence of other specified parts of digestive tract; Z98.84 Bariatric surgery status; Z82.49 Family history of ischemic heart disease and other diseases of the circulatory system; Z82.3 Family history of stroke; Z83.3 Family history of diabetes mellitus
CPT/HCPCS: 93005; 93306; 87088; 85025; 87086; 80048; 36415; 83735; 85610; 80076; 87077; 87186; 84484 ×2; 83880; 71275; 74175; 71045; 99285; U0003; Q9967; J1650; J2270; G0378 ×2; 81003; 81015

== ENCOUNTER → 2024-01-14 | Emergency (ER) | payer OTHER ==
[~2024-01-14] MED LIST: KCL 20 MEQ/100 mL IVPB 100 ML IV ONE; POTASSIUM CL SA 10 MEQ TAB PO ONE
--- NOTE | 2024-01-14 11:08 | RAD REPORT ---
[facility] CLINICAL HISTORY: COUGH COMPARISON: Chest Single View dated 03/17/2022; Chest Pa And Lat (2 Views) dated 07/27/2017; CHEST SIN GLE VIEW dated 04/15/2011; ABDOMEN 1 VIEW KUB dated 12/28/2008 TECHNIQUE: Portable AP view of the chest. FINDINGS: The lungs are clear. No pneumothorax or effusion. The cardiomediastinal contours are unre markable. IMPRESSION: No acute cardiopulmonary process.
[2024-01-14 11:12] LABS: Absolute Basophils 0.1 K/uL (0-0.5); Absolute Monocytes 0.3 K/uL (0.1-1.3); Absolute Neutrophil 3.4 K/uL (1.8-8.0); Basophils % 1.1 % (0-1.3); Eosinophils % 0.4 % (0-4.4); Hematocrit 36.7 % (36.0-45.0); Hemoglobin 12.3 g/dL (12.0-15.0); MCH 28.9 pg (27.0-35.0); MCHC 33.6 g/dL (32.0-36.0); Monocytes % 6.7 % (3.3-12.3); Neutrophils % 71.8 % (41.7-73.7); Platelets 166 thou/uL (152-406); RBC Red Blood Cell Count 4.27 M/uL (3.86-4.86); Red Cell Distribution Width 15.5 % (12.1-15.2)
[2024-01-14 11:36] LABS: Anion Gap 5.9 mEq/L (5.0-15.0); Potassium 2.9 mEq/L (3.5-5.1); Troponin High Sensitivity 17.9 pg/mL (<58.9)
--- NOTE | 2024-01-14 12:26 | RAD REPORT ---
EXAM DESCRIPTION: MRI - Lumbar Spine Wo Con - 01/14/2024 11:57 am CLINICAL HISTORY: BL LE weakness COMPARISON: Angio Aorta For Dissection dated 03/18/2022 TECHNIQUE: Multiplanar multisequence MRI of the lumbar spine performed, without intravenous gadolini um contrast. FINDINGS: Preserved lumbar lordosis. Multilevel Schmorl's node formation. Sequelae of posterior appr oach hardware fusion at L4-5. Grade 1 anterolisthesis of L4 over L5, measuring approximately 5 mm. Ve rtebral body heights are well maintained. No suspicious marrow signal. No paraspinal masses or edema. Conus terminates at the appropriate level. Ovoid T1 isointense, T2 hyperintense mass is seen at the c onus, measuring 3.5 x 1.0 cm, with no cystic components. Cauda equina roots are otherwise unremarkabl e, with no clumping or thickening. T12-L1: No significant findings. L1-L2: No significant findings. L2-L3: Broad-based posterior disc bulge with superimposed central small disc extrusion mildly effacin g the ventral CSF space. Neural foraminal narrowing predominantly due to disc bulging and endplate re mote. L3-L4 level: Mild broad-based posterior disc bulge. No central canal stenosis. Mild bilateral neural foraminal narrowing. L4-L5 level: No central canal stenosis. Suspected mild bilateral neural foraminal narrowing more so o n the right, although susceptibility artifact resulting from fusion hardware limits evaluation. L5-S1 level: Asymmetric facet arthropathy contributes to moderate left and mild right neural foramina l narrowing. Mild broad-based posterior disc bulge. No central canal stenosis. 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 Other considerations include a conus sc hwannoma or cauda equina neuroendocrine tumor, however these are considered less likely. [place]cau-xw-xekjypul spondylotic changes of the lumbar spine with sequelae of prior fusion at L4-5. Up to moderate neural foraminal narrowing most notably on the left at L5-S1. No central canal stenosis.
[2024-01-14 12:55] LABS: Sqamous Epithelial <5 /HPF (None Seen); Urine Bacteria None Seen /HPF (<20); Urine Bilirubin NEGATIVE (Negative); Urine Blood Negative (Negative); Urine Clarity Clear (Clear); Urine Color Colorless (Yellow); Urine Culture Reflex Order NOT NEEDED; Urine Glucose NEGATIVE (Negative); Urine Ketones NEGATIVE (Negative); Urine Micro Reflex YN NO BILL MICROSCOPIC; Urine Mucus Slight /HPF (None Seen); Urine Nitrite NEGATIVE (Negative); Urine Protein NEGATIVE (Negative); Urine RBC <5 /HPF (None Seen); Urine Urobilinogen Normal (Normal); Urine WBC <5 /HPF (<5)
--- NOTE | 2024-01-14 13:46 | EDPHYS ---
Physician Documentation [facility] Name: Miryam Sharma Age: 63 yrs Sex: Female : 1960 Arrival Date: 01/14/2024 Time: 09:53 Bed 15 Private MD: Delvis Desai V ED Physician Mt Tillman HPI: 01/13 10:17 This 63 yrs old Female presents to ER via Wheelchair with complaints of Leg ec2 weakness. 10:17 Patient arrives today for evaluation of bilateral lower extremity weakness. Patient ec2 reports that she has been experiencing weakness that is worsened over the past several days, states that she feels like she is unstable on both her feet. Patient reports history of all spine issues, previous laminectomy, reports no red flag symptoms including bowel or bladder incontinence. Patient reports that she feels like her legs are getting give out. Patient denies any worsening pain. Patient reports no infectious symptoms, no cough or cold symptoms, no vomiting, no diarrhea, no urinary complaints.. Historical: - Allergies: 10:10 No Known Allergies; iw - PMHx: 10:10 ADD/ADHD; Anxiety; Depression; GI Bleed; Hypertension; TIA; iw - PSHx: 10:10 section; Cholecystectomy; Gastric Bypass; Total abdominal hysterectomy; iw parathyroid removal; back (parathyroid removal); - Immunization history:: Adult Immunizations up to date. - Social history:: Smoking status: Patient denies any tobacco usage or history of. ROS: 10:17 Constitutional: as per hpi ec2 Exam: 10:17 Constitutional: GEN: NAD Head: atraumatic Eyes: EOMI Ears: External ears are ec2 normal. CV: regular rate LUNGS: no respiratory distress ABD: non-distended SKIN: no evidence of rashes MSK: no evidence of trauma, no C/T/L-spine TTP NEURO: Moving all extremities are equal, no focal neurologic deficit, sensation intact in the bilateral lower extremities Vital Signs: 10:07 BP 163 / 82; Pulse 59; Resp 16; Temp 98.3; Pulse Ox 99% on R/A; Weight 96.62 kg; Height iw 5 ft. 4 in. ; 10:34 BP 181 / 86; Pulse 62; Resp 17; ll1 12:47 BP 174 / 87; Pulse 60; Resp 14; Pulse Ox 99% ; nj1 15:33 BP 183 / 81; Pulse 59; Resp 16; Pulse Ox 100% ; nj1 10:07 Body Mass Index 36.56 (96.62 kg, 162.56 cm) iw MDM: 10:16 Patient medically screened. ec2 10:17 Data reviewed: vital signs. ED course: Patient arrives today for evaluation of ec2 worsening weakness. Examination remarkable for intact neurologic individual who is otherwise in no acute distress. Will obtain lab work, urine studies, and MRI of the L-spine. Evaluating for spinal cord pathology, UTI, electrolyte disturbances, anemia, renal dysfunction. 11:06 ED course: EKG independently reviewed and interpreted by me, shows normal sinus rhythm, ec2 rate of 62, no acute ST segment elevations, nonconcerning intervals.. 11:47 ED course: Metabolic profile shows slight hypokalemia with potassium of 2.9. CBC is ec2 reassuring. Troponin within normal ranges, chest x-ray shows no acute intrathoracic process. Will supplement patient's potassium. . 13:01 ED course: Urine noninfectious appearing. MR shows 3 and half centimeter mass of the ec2 conus medullaris. . 13:26 ED course: Will transfer to neurosurgical capable center for the spinal cord mass. ec2 Updated patient, discussed with transfer center.. 13:59 ED course: I discussed case with neurosurgery as well as hospitalist at [address] returns at this patient for admission. Patient updated on plan of care.. 01/13 10:17 Order name: Basic Metabolic Panel; Complete Time: 11:46 ec2 01/13 10:17 Order name: CBC with Diff; Complete Time: 11:46 ec2 01/13 10:17 Order name: Troponin HS; Complete Time: 11:46 ec2 01/13 10:17 Order name: UAM; Complete Time: 12:58 ec2 01/13 10:17 Order name: XRAY Chest (1 view); Complete Time: 11:46 ec2 01/13 10:17 Order name: MRI Lumbar Spine wo Con; Complete Time: 12:58 ec2 01/13 10:17 Order name: EKG; Complete Time: 10:18 ec2 01/13 10:17 Order name: Cardiac monitoring; Complete Time: 11:04 ec2 01/13 10:17 Order name: EKG - Nurse/Tech; Complete Time: 11:04 ec2 01/13 10:17 Order name: IV Saline Lock; Complete Time: 11:04 ec2 01/13 10:17 Order name: Labs collected and sent; Complete Time: 11:04 ec2 01/13 10:17 Order name: O2 Per Protocol; Complete Time: 11:12 ec2 01/13 10:17 Order name: O2 Sat Monitoring; Complete Time: 11:12 ec2 Administered Medications: 12:13 Drug: Potassium Chloride PO 40 mEq PO once Route: PO; nj1 15:52 Follow up: Response: No adverse reaction nj1 12:40 Drug: Potassium Chloride IV 20 mEq IV at calculated rate once; administer over 1-2 nj1 hours Route: IV; Rate: calculated rate; Site: right antecubital; 15:51 Follow up: Response: No adverse reaction; IV Status: Completed infusion; IV Intake: nj1 100ml Disposition Summary: 01/14/24 13:46 Transfer Ordered Notes: Transfer Location: Other Acute Care Facility ec2 Reason: Higher level of care ec2 Condition: Stable ec2 Problem: an acute exacerbation ec2 Symptoms: are unchanged ec2 Accepting Physician: transferring doc(01/14/24 16:29) nj1 Diagnosis - Spinal Cord Mass ec2 Forms: - Medication Reconciliation Form ec2 - SBAR form ec2 Signatures: Dispatcher [employer] Karlene Marte RN RN iw Laura Mcpherson RN RN nj1 Mt Tillman MD MD ec2 Corrections: (The following items were deleted from the chart) 16:29 13:46 transferring doc ec2 nj1
--- NOTE | 2024-01-14 13:46 | ER ---
[facility]urse's Notes [facility] Name: Miryam Sharma Age: 63 yrs Sex: Female : 1960 Arrival Date: 01/14/2024 Time: 09:53 Bed 15 Private MD: Delvis Desai V Diagnosis: Spinal Cord Mass Presentation: 01/13 10:07 Chief complaint: Patient states: muscle problems with legs, starts physical therapy iw next week, today I could hardly stand. both legs are weak , had back surgery in July and since then she has had issues. Coronavirus screen: At this time, the client does not indicate any symptoms associated with coronavirus-19. Ebola Screen: Patient negative for fever greater than or equal to 101.5 degrees Fahrenheit, and additional compatible Ebola Virus Disease symptoms Patient denies exposure to infectious person. Patient denies travel to an Ebola-affected area in the 21 days before illness onset. No symptoms or risks identified at this time. Initial Sepsis Screen: Does the patient meet any 2 criteria? No. Patient's initial sepsis screen is negative. Does the patient have a suspected source of infection? No. Patient's initial sepsis screen is negative. Risk Assessment: Do you want to hurt yourself or someone else? Patient reports no desire to harm self or others. 10:07 Method Of Arrival: Wheelchair iw 10:07 Acuity: KARLY 3 iw 11:11 Onset of symptoms was January 14, 2024. nj1 Historical: - Allergies: 10:10 No Known Allergies; iw - PMHx: 10:10 ADD/ADHD; Anxiety; Depression; GI Bleed; Hypertension; TIA; iw - PSHx: 10:10 section; Cholecystectomy; Gastric Bypass; Total abdominal hysterectomy; iw parathyroid removal; back (parathyroid removal); - Immunization history:: Adult Immunizations up to date. - Social history:: Smoking status: Patient denies any tobacco usage or history of. Screenin:10 [facility] ED Fall Risk Assessment (Adult) History of falling in the last 3 months, nj1 including since admission No falls in past 3 months (0 pts) Confusion or Disorientation No (0 pts) Intoxicated or Sedated No (0 pts) Impaired Gait Yes (1 pt) Mobility Assist Device Used No (0 pt) Altered Elimination No (0 pt) Score/Fall Risk Level 0 - 2 = Low Risk Oriented to surroundings, Maintained a safe environment, Hourly rounding (assess needs \T\ fall precautionary measures) done. Abuse screen: Denies threats or abuse. Denies injuries from another. Nutritional screening: No deficits noted. Tuberculosis screening: No symptoms or risk factors identified. Assessment: 11:00 General: Appears in no apparent distress. comfortable, Behavior is calm, cooperative, nj1 appropriate for age. Pain: Complains of pain in groin. Neuro: Level of Consciousness is awake, alert, obeys commands, Oriented to person, place, time, situation. Neuro: Reports weakness in right leg and left leg since this morning. Cardiovascular: Patient's skin is warm and dry. Respiratory: Airway is patent Respiratory effort is even, unlabored. 11:38 Reassessment: Not in room, in imaging. nj1 11:50 Reassessment: Not in room, in imaging. nj1 12:47 Reassessment: Patient appears in no apparent distress at this time. Patient and/or nj1 family updated on plan of care and expected duration. Pain level reassessed. Patient is alert, oriented x 3, equal unlabored respirations, skin warm/dry/pink. 15:52 Reassessment: Patient appears in no apparent distress at this time. Patient and/or nj1 family updated on plan of care and expected duration. Pain level reassessed. Patient is alert, oriented x 3, equal unlabored respirations, skin warm/dry/pink. 16:26 Reassessment: EMS here to transport patient. Report given to Tressa BANDA. nj1 Vital Signs: 10:07 BP 163 / 82; Pulse 59; Resp 16; Temp 98.3; Pulse Ox 99% on R/A; Weight 96.62 kg; Height iw 5 ft. 4 in. ; 10:34 BP 181 / 86; Pulse 62; Resp 17; ll1 12:47 BP 174 / 87; Pulse 60; Resp 14; Pulse Ox 99% ; nj1 15:33 BP 183 / 81; Pulse 59; Resp 16; Pulse Ox 100% ; nj1 10:07 Body Mass Index 36.56 (96.62 kg, 162.56 cm) iw ED Course: 09:57 Patient arrived in ED. mr 09:58 Delvis Desai MD is Private Physician. mr 10:00 Mt Tillman MD is Attending Physician. ec2 10:10 Triage completed. iw 10:10 Arm band placed on. iw 10:28 Patient placed in an exam room, on a stretcher. ll1 10:45 Laura Mcpherson, RN is Primary Nurse. nj1 10:49 XRAY Chest (1 view) In Process Unspecified. EDMS 11:00 Client placed on continuous cardiac and pulse oximetry monitoring. NIBP monitoring nj1 applied. internal revenue service agent on. 11:00 Inserted saline lock: 22 gauge in right antecubital area, using aseptic technique. nj1 Blood collected. 11:04 EKG done, by ED staff. aw1 11:11 Patient has correct armband on for positive identification. Bed in low position. Call nj1 light in reach. Adult w/ patient. Provided Education on: call light, fall precautions. 11:58 MRI Lumbar Spine wo Con In Process Unspecified. EDMS 13:15 spoke with Pranay at the [facility] transfer [place] . bc6 13:41 pt had surgery in July at the [facility] [place] in [facility] with 6 . spoke with Pranay at the transfer center, as informed there is a bed available , and he is willing to hold it until we contact patients Dr Michelle 13:50 spoke with Susi at 's office and was informed they do not do inpatient bc6 service , informed me it was ok to transfer the patient out. 14:00 received acceptance with a bed at [facility] from [facility] bed #[id number]. bc6 15:35 Notified ED physician of vital signs. nj1 15:50 patients packet completed and call made to [facility]. with an ETA given of 30 bc6 minutes. 15:52 No provider procedures requiring assistance completed. Patient transferred, IV remains nj1 in place. 17:43 Primary Nurse role handed off by Laura Mcpherson, RN nj1 Administered Medications: 12:13 Drug: Potassium Chloride PO 40 mEq PO once Route: PO; nj1 15:52 Follow up: Response: No adverse reaction nj1 12:40 Drug: Potassium Chloride IV 20 mEq IV at calculated rate once; administer over 1-2 nj1 hours Route: IV; Rate: calculated rate; Site: right antecubital; 15:51 Follow up: Response: No adverse reaction; IV Status: Completed infusion; IV Intake: nj1 100ml Medication: 15:52 VIS not applicable for this client. nj1 Intake: 15:51 IV: 100ml; Total: 100ml. nj1 Outcome: 13:46 ER care complete, transfer ordered by . ec2 15:36 Transferred by ground EMS to [facility], Transfer form completed. nj1 Note: Report called to Terrence CAT 15:36 Condition: stable nj1 15:36 Instructed on the need for transfer, 16:29 Patient left the ED. nj1 Signatures: Dispatcher [employer] EDND Zina Parikh, Reg Reg mr Karlene Valdes, RN RN iw Charan Graham RN RN ll1 Tiffanie Gallagher6 Laura Mcpherson RN RN nj1 Kate Silva aw1 Mt Tillman MD MD ec2 Corrections: (The following items were deleted from the chart) 10:35 10:34 Reassessment: ll1 ll1
[2024-01-14 17:54] VITALS: BP 183/81; TEMP 98.3; O2SAT 100
--- NOTE | 2024-01-15 17:25 | EKG ---
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
== END ==
LOC: ER 09:53
DX: G95.89 Other specified diseases of spinal cord (principal); I10 Essential (primary) hypertension; Z86.73 Personal history of transient ischemic attack (TIA), and cerebral infarction without residual deficits
CPT/HCPCS: 96365; 93005; 85025; 81001; 80048; 36415; 84484; 71045; 72148; 99285; 96366; J3480

== ENCOUNTER → 2024-03-01 | Day surgery (SDC) | payer OTHER ==
--- NOTE | 2024-03-02 10:04 | RAD REPORT ---
EXAM DESCRIPTION: US - Breast Core BX w/US Guidance - 03/01/2024 10:39 am CLINICAL HISTORY: ICD R 92.8 COMPARISON: ultrasound December 2023 TECHNIQUE: The risks, benefits alternatives to the procedure were explained to the patient and infor med consent obtained. Skin and deeper tissues anesthetized with lidocaine. Under sonographic guidance, three 14 gauge vacuum assisted core biopsies of the mass within the inner left breast obtained. 2 centimeter specimens taken. Tissue given to pathology. Subsequently a localizing clip was placed into the mass. Patient experienced no immediate complication IMPRESSION: Vacuum assisted core biopsies of the left breast mass
== END ==
LOC: DS 08:00
PROVIDERS: ATTEND Internal Medicine
DX: N60.32 Fibrosclerosis of left breast (principal); R92.8 Other abnormal and inconclusive findings on diagnostic imaging of breast
CPT/HCPCS: 19083; 88305